=== PATIENT | female | born 1950 | race Caucasian/White ===

== ENCOUNTER 2017-02-14 16:05 | Observation (INO) ==
--- NOTE | 2017-02-14 16:44 | Emergency Department Note ---
Disposition Clinical Impression: Chest pain Qualifiers: Chest pain type: unspecified Qualified Code(s): R07.9 - Chest pain, unspecified Disposition: Admitted As Inpatient Condition: Undetermined Referrals: Gurjit Leon DO [Primary Care Provider] - Forms: ED Satisfaction Letter Time of Disposition: 19:17 Chest Pain HPI - General Chief Complaint: ED Chest Pain Stated Complaint: "I need admitted for heart cath" Time Seen by Provider: 02/14/17 16:20 Source: patient Mode of arrival: ambulatory Limitations: no limitations Vital Signs Reviewed: Yes Nursing Notes Reviewed: Yes - History of Present Illness HPI Narrative: 67-year-old female with history of hypertension, arrives to [facility] emergency department with concern chest pain has been ongoing over the past few weeks. The patient was recently admitted to the hospital where she had an EKG ischemic changes on the lateral leads noted on stress echo. Nuclear echo demonstrated no changes. Apparently this was a poor study. The patient was sent home. She states last night she had an acute change or worsening or she was having worsening chest pain that radiated to her neck and face as well as left upper extremity. The patient has no nitroglycerin at home. She denies taking anything today. Apparently the patient called her software engineer mobile nurse which struck her to come to the emergency department to be admitted for cardiac catheter. We will perform basic labs here in the emergency department including troponin, BNP, CBC. The patient will receive chest x-ray, EKG. We will likely admit the patient to the hospitalists after speaking to the software engineer mobile. Pt complaint: chest pain Onset (ago): week(s) (2-3) Duration: constant Onset: during rest, during exertion Pain Location: substernal Severity: moderate Severity scale (1-10): 4 Quality: tightness, heaviness Pain Radiation: LUE Improves with: nothing Worsens with: nothing Treatments prior to arrival chest pain: none - Related Data On Oral Contraceptives: No Home Medications Medication Instructions Recorded Confirmed Atenolol [Tenormin] 50 mg PO BID 11/26/15 02/14/17 Atorvastatin Calcium [Lipitor] 20 mg PO HS 11/26/15 02/14/17 Calcium Carbonate [Calcium] 500 mg PO BID 11/26/15 02/14/17 Levothyroxine [Synthroid] 75 mcg PO 0630 11/26/15 02/14/17 [place]-3/Dha/Epa/Fish Oil [Fish Oil 2,000 mg PO BID 11/26/15 02/14/17 1,000 mg Softgel] Omeprazole [PriLOSEC] 20 mg PO DAILY 11/26/15 02/14/17 Aspirin Enteric Coated [Aspirin EC] 81 mg PO DAILY 02/14/17 02/14/17 Potassium Chloride [Klor-Con 10 meq PO DAILY 02/14/17 02/14/17 Sprinkle] Allergies Allergy/AdvReac Type Severity Reaction Status Date / Time codeine Allergy Drowsy Verified 02/14/17 16:16 ketorolac [From Toradol] Allergy Vomiting Verified 02/14/17 16:16 lansoprazole [From Prevacid] Allergy Nausea Verified 02/14/17 16:16 morphine Allergy Nausea Verified 02/14/17 16:16 propoxyphene [From Darvon] Allergy See Verified 02/14/17 16:16 Comments All systems ED: reviewed and negative except as stated. Constitutional: Denies: fever, chills, weakness Cardiovascular: Reports: chest pain, dyspnea on exertion. 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 - Social History Smoking Status: Never smoker Alcohol use: Reports: none Drug use: Reports: none Physical Exam - General Limitations: no limitations General appearance: alert, in no apparent distress - Head Head exam: atraumatic, normocephalic, normal inspection - Eye Eye exam: Present: normal appearance, PERRL, EOMI - ENT ENT exam: normal exam, normal oropharynx, mucous membranes moist - Neck Neck exam: Present: normal inspection, full ROM, trachea midline - Chest Chest inspection: Present: normal inspection, symmetric chest wall rise - Respiratory Respiratory exam: Present: normal lung sounds bilaterally - Cardiovascular Cardiovascular exam: Present: normal rhythm, bradycardia, normal heart sounds - Abdominal Exam Abdominal exam: Present: soft Course - Consultations Consultation #1: Spoke with in cardiology that no further recommendations. They will agree to see the patient in the hospital. Time: 18:41 Vital Signs Temperature 98.4 F 02/14/17 16:10 Pulse Rate 57 02/14/17 16:10 Respiratory Rate 16 02/14/17 16:10 Blood Pressure 191/80 02/14/17 16:10 O2 Sat by Pulse Oximetry 97 02/14/17 16:10 Temperature 98.1 F 02/14/17 16:38 Pulse Rate 54 02/14/17 18:46 Respiratory Rate 16 02/14/17 18:46 Blood Pressure 149/81 02/14/17 18:46 O2 Sat by Pulse Oximetry 98 02/14/17 18:46 Oxygen Delivery Oxygen Delivery Room Air Chest Pain - MDM Narrative Medical decision making narrative: Patient's workup here in the emergency department demonstrated no acute process. We spoke with cardiology and no further recommendations but agrees to see the patient hospital. Given the patient's previous lateral ischemia and pending cardiac catheter I am concerned about the patient's chest pain that she had last night and felt like the previous chest pain which she was getting a stress test. We will admit the patient to the hospitalist, accepted by Dr. Phan. He did request Lovenox injection. We performed. - Medical Records Medical records reviewed: Yes I reviewed the patient's medical records. - Lab Data Lab results reviewed: Yes I reviewed the patient's lab results. Result diagrams: 02/14/17 17:08 02/14/17 17:08 Lab Results 02/14/17 02/14/17 02/14/17 Range/Units 17:08 17:08 17:08 WBC 7.7 (4.3-11.1) K/mcL RBC 4.03 (3.82-4.97) M/mcL Hgb 12.1 (11.5-15.4) g/dL Hct 36.3 (35.3-44.9) % MCV 90.1 (83.0-100.0) fL MCH 30.0 (28.0-33.3) pg MCHC 33.3 (31.6-35.5) g/dL RDW 13.7 (11.5-14.5) % Plt Count 339 (140-400) K/mcL MPV 9.1 L (9.4-12.4) fL Immature Gran % 0.3 (0-4) % Seg Neutrophils % 52.3 % Lymphocytes % 40.1 % Monocytes % 4.9 % Eosinophils % 1.6 % Basophils % 0.8 % Neutrophils # 4.1 (1.6-8.9) K/mcL Lymphocytes # 3.1 (0.6-4.6) K/mcL Monocytes # 0.4 (0.0-1.3) K/mcL Eosinophils # 0.1 (0.0-0.6) K/mcL Basophils # 0.1 (0.0-0.2) K/mcL PT 11.0 (9.4-12.1) Seconds INR 1.0 APTT 29.5 (26.0-36.0) Seconds Sodium 144 (136-145) mEq/L Potassium 3.6 (3.5-4.5) mEq/L Chloride 109 (98-109) mEq/L Carbon Dioxide 25 (19-29) mEq/L BUN 12 (7-20) mg/dL Creatinine 0.76 (0.57-1.11) mg/dL Est GFR ( Amer) > 60 (> 60) Est GFR (Non-Af Amer) > 60 (> 60) BUN/Creatinine Ratio 16 (6-26) Glucose 82 (70-99) mg/dL Calculated Osmolality 297 (280-300) Calcium 9.3 (8.6-10.8) mg/dL Troponin I (0-0.03) ng/mL 02/14/17 Range/Units 17:08 WBC (4.3-11.1) K/mcL RBC (3.82-4.97) M/mcL Hgb (11.5-15.4) g/dL Hct (35.3-44.9) % MCV (83.0-100.0) fL MCH (28.0-33.3) pg MCHC (31.6-35.5) g/dL RDW (11.5-14.5) % Plt Count (140-400) K/mcL MPV (9.4-12.4) fL Immature Gran % (0-4) % Seg Neutrophils % % Lymphocytes % % Monocytes % % Eosinophils % % Basophils % % Neutrophils # (1.6-8.9) K/mcL Lymphocytes # (0.6-4.6) K/mcL Monocytes # (0.0-1.3) K/mcL Eosinophils # (0.0-0.6) K/mcL Basophils # (0.0-0.2) K/mcL PT (9.4-12.1) Seconds INR APTT (26.0-36.0) Seconds Sodium (136-145) mEq/L Potassium (3.5-4.5) mEq/L Chloride (98-109) mEq/L Carbon Dioxide (19-29) mEq/L BUN (7-20) mg/dL Creatinine (0.57-1.11) mg/dL Est GFR ( Amer) (> 60) Est GFR (Non-Af Amer) (> 60) BUN/Creatinine Ratio (6-26) Glucose (70-99) mg/dL Calculated Osmolality (280-300) Calcium (8.6-10.8) mg/dL Troponin I 0.00 (0-0.03) ng/mL - Radiology Data Radiology results reviewed: Yes I reviewed the patient's radiology results. - EKG Data EKG attestation: Yes I reviewed and interpreted this EKG. EKG results narrative: Heart rate 50 bpm. ND interval 152 ms. QTc 453 ms. Sinus bradycardia. No ST elevation or ST depression noted. Nonspecific changes noted from EKG from 02/10. EKG #2: Heart rate 54 bpm. ND interval 161 ms. QTC 43 ms. Normal axis. Sinus bradycardia. No ST elevation or ST depression noted.
[2017-02-14 17:42] LABS: Basophils # 0.1 K/mcL (0.0-0.2); Basophils % 0.8 %; Eosinophils # 0.1 K/mcL (0.0-0.6); Eosinophils % 1.6 %; Hematocrit 36.3 % (35.3-44.9); Hemoglobin 12.1 g/dL (11.5-15.4); Immature Granulocytes % 0.3 % (0-4); Lymphocytes # 3.1 K/mcL (0.6-4.6); Lymphocytes % 40.1 %; Mean Corpuscular HGB Conc 33.3 g/dL (31.6-35.5); Mean Corpuscular Volume 90.1 fL (83.0-100.0); Mean Platelet Volume 9.1 fL (9.4-12.4); Monocytes # 0.4 K/mcL (0.0-1.3); Monocytes % 4.9 %; Neutrophils # 4.1 K/mcL (1.6-8.9); Platelet Count 339 K/mcL (140-400); Red Blood Count 4.03 M/mcL (3.82-4.97); Red Cell Distribution Width 13.7 % (11.5-14.5); Segmented Neutrophils % 52.3 %
[2017-02-14 17:52] LABS: Activated Partial Thrombo Time 29.5 Seconds (26.0-36.0)
[2017-02-14 17:55] LABS: BUN/Creatinine Ratio 16 (6-26); Blood Urea Nitrogen 12 mg/dL (7-20); Calcium 9.3 mg/dL (8.6-10.8); Carbon Dioxide 25 mEq/L (19-29); Chloride 109 mEq/L (98-109); Glucose 82 mg/dL (70-99); Osmolality,Calculated 297 (280-300); Potassium 3.6 mEq/L (3.5-4.5); Sodium 144 mEq/L (136-145); eGFR For African Americans > 60 (> 60); eGFR For Non-African Americans > 60 (> 60)
--- NOTE | 2017-02-14 18:06 | Emergency Department Note ---
START Narrative - START START: I examined this patient and my medical decision-making was reviewed with the Resident Physician. I agree with the documented findings, disposition and treatment plan as described except to the extent set forth below. 67 yo F here for chest pain. Stress nuclear test done. stress portion showed lateral ischemia but nuclear was negative. pt f/u with cards who wanted to arrange for a heart cath due to her ongoing sx of chest pain. she was uanble to stay in hospital over weekend. back in ER today with same complaint pt needs admitted for cardiac cath.
[2017-02-14] MEDS ORDERED: *HR* Enoxaparin 60 MG/0.6 ML SYRINGE SQ STA ×2 (19:13→20:06)
[2017-02-14] MEDS ORDERED: Naloxone 0.4 MG/ML INJ IVP PRN (20:58)
[2017-02-14] MEDS ORDERED: Ondansetron 4 MG/2 ML VIAL IVP PRN (20:58)
--- NOTE | 2017-02-14 21:56 | Event Note ---
Date of Encounter: 02/14/17 Time of Encounter: 21:53 Patients and examined withpractitioner. Patient has recent positive exercise stress test with ST segment depression and info lateral leads. She was scheduled to have a coronary and dendrogram. He has been having left arm pain. Patients received one DOSE full dose Lovenox. She has been having numbness on the left side of the face so to get a head CT scan. Cardiology evaluation. Keep NPO for possible cath in am
--- NOTE | 2017-02-14 21:56 | Internal Med History&Physical ---
Date of Encounter: 02/14/17 Time of Encounter: 19:00 Assessment and Plan (1) Chest pain Current visit: Yes Status: Acute Patient reports acute burning sensation in central chest that began last night, accompanied w/headache. Patient had recent exercise nuclear stress test on 02/02 which showed perfusion imaging was negative for ischemia or infarct. Exercise ECG was positive for ischemia-inferolateral. Gated EF > 70%. EKG today shows sinus bradycardia with nonspecific ST and T-wave abnormality and prolonged QT interval. Initial troponin 0.00. Trend x2. Continuous cardiac telemetry. Cardiology consult ordered. Monitor pt. closely for signs of increasing cardiac and/or respiratory distress. NPO @ midnight for possible heart cath in a.m. Qualifiers: Chest pain type: other chest pain Qualified Code(s): R07.89 - Other chest pain; R07.8 - Other chest pain (2) Numbness and tingling of left side of face Current visit: Yes Status: Acute Patient reports tingling/numbness/strange sensation to forehead and left side of face to chin which began last night. Denies previous hx. Reports headache last night. Denies N/V/vision changes/weakness bilaterally or unilaterally/ speech changes. Concern is for possible CVA/TIA activity. CT of head/brain w/o contrast ordered and shows no acute intracranial abnormality. Neuro checks Q2HR. (3) Arm pain, left Current visit: Yes Status: Acute Acute burning sensation in left arm the patient reports began last Sunday. CT of head/brain w/o contrast ordered to r/o possible infarct. CT scan shows no acute intracranial abnormality. Initial troponin 0.00. Trend 2. Continuous cardiac telemetry. Falls/safety precautions. Cardiology consult ordered. (4) GERD (gastroesophageal reflux disease) Current visit: Yes Status: Chronic Hx of chronic GERD. IVP Zofran every 6 when necessary for nausea. IVP Protonix 40 mg BID. Qualifiers: Esophagitis presence: without esophagitis Qualified Code(s): K21.9 - Gastro -esophageal reflux disease without esophagitis (5) HTN (hypertension) Current visit: Yes Status: Chronic Hx of chronic HTN. Monitor patient and VS and continue patient's atenolol. Qualifiers: Hypertension type: essential hypertension Qualified Code(s): I10 - Essential (primary) hypertension (6) HLD (hyperlipidemia) Current visit: Yes Status: Chronic Hx of chronic HLD. Lipid panel ordered in a.m. labs. Continue patient's Lipitor. Qualifiers: Hyperlipidemia type: pure hypercholesterolemia Qualified Code(s): E78.00 - Pure hypercholesterolemia, unspecified; E78.0 - Pure hypercholesterolemia (7) Hypothyroidism Current visit: Yes Status: Chronic Hx chronic hypothyroidism. Continue patient's Synthroid. Qualifiers: Hypothyroidism type: unspecified Qualified Code(s): E03.9 - Hypothyroidism , unspecified (8) DVT prophylaxis Current visit: Yes Status: Acute Patient received SQ Lovenox in ED for prophylaxis. Will hold tomorrow pending possible heart catheterization and await cardiology recommendations. Internal Medicine - H&P: HPI Chief complaint: Chest discomfort with buring in right arm and strange feeling on left face Admitted From: Emergency Dept Plans for Post Hospital Care: Home History of present illness: Ms. Umaña is a 67 year old female with medical history of GERD, hypertension, hyperlipidemia, heart murmur, thyroid disease presents to ED with chief complaint of burning in her left arm since Sunday and tingling in her left face and chest which began last night and was accompanied by headache. Patient had recent exercise nuclear stress test on 02/02/17 which showed perfusion imaging was negative for ischemia or infarct. Exercise ECG was positive for ischemia- inferolateral. Gated EF > 70%. EKG today shows sinus bradycardia with nonspecific ST and T-wave abnormality and prolonged QT interval. Patient reports chest burning, left arm burning, and strange sensation to left forehead and face but denies recent illness, nausea, vomiting, fever, chills, weakness, abdominal pain, changes in vision, cough, lightheadedness, dizziness, confusion , unusual bleeding, presyncope, or syncope. Past Med Surg Social Fam HX - Past Medical History Source: patient, old records reviewed, obtained from family Medical history: GERD, hypertension, thyroid disease, other (Heart murmur) Psychiatric history: no psych history - Past Surgical History Surgical History: hysterectomy (Total), other (Tonsillectomy, removal of ganglion cyst of right hand ) - Social History Smoking Status: Never smoker Smokeless Tobacco Status: No Alcohol use: none Drug use: none Current living situation: Home, With Family Activity Level: Independent ambulation Recent Out of Country Travel Within the Last 8 Weeks: No Exposure or Possible Exposure to Illness During Travel: No - Family History Father Race: Family Member Ethnicity: Non- Living Status: Age at : 79 Cause of : Heart valve rupture Hx Family Cardiac Disorders: Yes (HTN) Hx Family GI Disorders: Yes (CKD) Mother Race: Family Member Ethnicity: Non- Living Status: Still Living Hx Family Cardiac Disorders: Yes (Leaky heart valve) Brother Race: Family Member Ethnicity: Non- Living Status: Still Living Hx Family Cardiac Disorders: Yes (PR, CHF, HTN, HLD) Sister Race: Family Member Ethnicity: Non- Living Status: Still Living Hx Family Cardiac Disorders: Yes (Mitral valve regurgitation) Internal Medicine - H&P: Meds Atenolol [Tenormin] 50 mg PO BID 11/26/15 [History] Atorvastatin Calcium [Lipitor] 20 mg PO HS 11/26/15 [History] Calcium Carbonate [Calcium] 500 mg PO BID 11/26/15 [History] Levothyroxine [Synthroid] 75 mcg PO 0630 11/26/15 [History] [place]-3/Dha/Epa/Fish Oil [Fish Oil 1,000 mg Softgel] 2,000 mg PO BID 11/26/15 [ History] Omeprazole [PriLOSEC] 20 mg PO DAILY 11/26/15 [History] Aspirin Enteric Coated [Aspirin EC] 81 mg PO DAILY 02/14/17 [History] Potassium Chloride [Klor-Con Sprinkle] 10 meq PO DAILY 02/14/17 [History] 3 Allergy/AdvReac Type Severity Reaction Status Date / Time codeine Allergy Drowsy Verified 02/14/17 16:16 ketorolac [From Toradol] Allergy Vomiting Verified 02/14/17 16:16 lansoprazole [From Prevacid] Allergy Nausea Verified 02/14/17 16:16 morphine Allergy Nausea Verified 02/14/17 16:16 propoxyphene [From Darvon] Allergy See Verified 02/14/17 16:16 Comments All Systems PM: A 10-system review of systems was performed and is negative for pertinent findings except as documented above in the HPI. - Constitutional Constitutional: no chills, no fever(s), no night sweats - EENT Eyes: no change in vision, no discharge, no pain, no photophobia Ears: no ear discharge, no ear pain, no tinnitus Nose, mouth and throat: no dysphagia, no nasal discharge, no neck pain, no sore throat - Breasts Breasts: as per HPI - Cardiovascular Cardiovascular ROS IM: as per HPI, chest pain, dyspnea, dyspnea on exertion, no diaphoresis, no lightheadedness, no palpitations, no syncope - Respiratory Respiratory: as per HPI, dyspnea on exertion - Gastrointestinal Gastrointestinal: no abdominal pain, no diarrhea, no hematemesis, no hematochezia, no melena, no nausea, no vomiting - Genitourinary Genitourinary: no change in urinary stream, no dysuria, no flank pain, no hematuria Menstruation: as per HPI, post hysterectomy - Musculoskeletal Musculoskeletal ROS IM: numbness, tingling (Chest, left arm) - Integumentary Integumentary IM: no rash, no unusual bruising - Neurological Neurological ROS: as per HPI, numbness, tingling, no confusion, no convulsions, no focal weakness, no tremor(s) - Psychiatric Psychiatric: as per HPI - Endocrine Endocrine IM: as per HPI - Hematologic/Lymphatic Hematologic/Lymphatic: no easy bruising - Allergic/Immunologic Allergic/Immunologic: as per HPI - Constitutional Vitals: Temp Pulse Resp BP Pulse Ox 98.0 F 57 16 151/87 95 02/14/17 21:03 02/14/17 21:03 02/14/17 21:03 02/14/17 21:03 02/14/17 21:03 General appearance: Present: cooperative, A&O X 3, pleasant, no acute distress, answers questions appropriately - Head Head exam: Present: atraumatic, normocephalic - Eye Eye exam: Present: PERRL, conjuntiva pink, sclera anicteric Pupils: Present: PERRL - ENT ENT exam: Present: normal exam, normal external ear exam - Neck Neck exam general surgery: Present: normal inspection, supple, trachea midline. Absent: lymphadenopathy - Respiratory Respiratory exam: Present: CTAB. Absent: accessory muscle use, rales, rhonchi, wheezes - Cardiovascular Cardiovascular exam: Present: bradycardia, RRR, +S1, +S2. Absent: diastolic murmur, gallop, rubs, systolic murmur - GI/Abdominal GI/Abdominal exam: Present: normal bowel sounds, soft, no peritoneal signs. Absent: distended, tenderness - Rectal Rectal exam: Present: deferred - Additional comments: exam deferred. - Extremities Exam Extremities exam: Present: warm, radial pulses palpable and symmetrical. Absent : calf tenderness, cyanotic, pedal edema - Back Exam Back exam: Present: normal inspection - Neurological Exam Neurological exam: Present: CN II-XII intact, oriented X3, no focal deficits. Absent: pronater drift, facial droop, speech deficit - Psychiatric Psychiatric exam: Present: normal affect, normal mood - Skin Skin exam: Present: dry, intact Internal Med - H&P Results - Labs CBC & Chem 7: 02/14/17 17:08 02/14/17 17:08 - EKG Data EKG shows normal: sinus rhythm Rate: bradycardia - EKG Data EKG comments: 02/14/17 22:03 EKG dated 02/10/17 shows sinus bradycardia with left ventricular hypertrophy and ST-T changes. EKG dated 02/14/17 16:30:11 shows sinus bradycardia with moderate ST depression. EKG dated 02/14/17 19:28:46 shows sinus bradycardia with nonspecific ST and T- wave abnormality, prolonged QT interval. - Diagnostic Studies Chest x-ray Additional comments: Impressions Chest X-Ray 02/14/17 16:38 IMPRESSION: No acute cardiopulmonary disease. D/ / Nabil Wang MD / Nabil Wang MD Interpreting Provider: Nabil Wang MD CT scan - head Additional comments: Impressions Head CT 02/14/17 21:06 IMPRESSION: No acute intracranial abnormality. D/ / Phillip Ballesteros MD / Phillip Ballesteros MD Interpreting Provider: Phillip Ballesteros MD
[2017-02-15] MEDS: Pantoprazole 40 MG VIAL IVP SCH ×3 (00:03→21:12)
[2017-02-15] MEDS: Acetaminophen 325 MG TABLET PO PRN ×2 (00:33→20:05)
[2017-02-15 06:11] LABS: Basophils # 0.1 K/mcL (0.0-0.2); Basophils % 0.9 %; Eosinophils # 0.2 K/mcL (0.0-0.6); Eosinophils % 3.6 %; Hematocrit 33.9 % (35.3-44.9); Hemoglobin 11.1 g/dL (11.5-15.4); Immature Granulocytes % 0.3 % (0-4); Lymphocytes # 3.3 K/mcL (0.6-4.6); Mean Corpuscular HGB Conc 32.7 g/dL (31.6-35.5); Mean Corpuscular Hemoglobin 30.1 pg (28.0-33.3); Mean Corpuscular Volume 91.9 fL (83.0-100.0); Mean Platelet Volume 9.2 fL (9.4-12.4); Monocytes # 0.4 K/mcL (0.0-1.3); Monocytes % 6.4 %; Neutrophils # 2.6 K/mcL (1.6-8.9); Platelet Count 315 K/mcL (140-400); Red Blood Count 3.69 M/mcL (3.82-4.97); Red Cell Distribution Width 13.4 % (11.5-14.5); Segmented Neutrophils % 38.8 %
[2017-02-15 06:13] LABS: INR 1.1; Prothrombin Time 11.9 Seconds (9.4-12.1)
[2017-02-15 06:15] LABS: Activated Partial Thrombo Time 37.9 Seconds (26.0-36.0)
[2017-02-15 06:17] LABS: Hemoglobin A1C 5.7 %
[2017-02-15 06:35] LABS: Alanine Aminotransferase 17 Units/L (0-55); Albumin 3.3 g/dL (3.5-5.0); Albumin/Globulin Ratio 1.1 (1.1-2.2); Alkaline Phosphatase 81 Units/L (38-126); Aspartate Amino Transferase 16 Units/L (5-34); BUN/Creatinine Ratio 16 (6-26); Bilirubin,Total 0.8 mg/dL (0.2-1.2); Blood Urea Nitrogen 12 mg/dL (7-20); Calcium 8.9 mg/dL (8.6-10.8); Carbon Dioxide 25 mEq/L (19-29); Chloride 110 mEq/L (98-109); Chol/HDL Ratio 4.6 (0-4.9); Cholesterol 170 mg/dL (< 200); Globulin 3.1 g/dL (2.4-3.5); Glucose 89 mg/dL (70-99); HDL Cholesterol 37 mg/dL (40-59); LDL Cholesterol,Calculated 103 mg/dL (0-99); Magnesium 1.9 mg/dL (1.6-2.6); Osmolality,Calculated 295 (280-300); Potassium 3.4 mEq/L (3.5-4.5); Sodium 143 mEq/L (136-145); Total Protein 6.4 g/dL (6.0-8.3); Triglycerides 152 mg/dL (< 150); eGFR For African Americans > 60 (> 60); eGFR For Non-African Americans > 60 (> 60)
--- NOTE | 2017-02-15 10:54 | Cardiology Consult Note ---
<Estuardo Cruz - Last Filed: 02/15/17 11:28> Date of Encounter: 02/15/17 Time of Encounter: 10:43 Assessment and Plan (1) ST segment depression Current Visit: Yes Status: Acute Stress EKG 02/02/17 - ST depression in lateral leads I, aVL, V5-V6. Originally scheduled cath on 02/21/2017. When patient was seen, CP symptoms were resolved. Patient was recently hospitalized with similar symptoms. Trop neg x3. TSH 2.674. Pt is compliant with home meds ASA81, Atenolol 50 BID, and atorvastatin 20. - CALLI score 5; risks age, >3 CAD risks, known stenosis, angina - Patient will most likely go to micro lab analyst today. BP needs to be controlled prior to procedure. Started lisinopril 5 mg. Started on 2x 0.2 mg Nitroglycern TD (remove individual patch if BP bottoms out) (2) HTN (hypertension) Current Visit: Yes Status: Chronic Patient has chronic HTN. Patient does not take BP at home. Recommended to patient, to closely monitor her BP. - BP is currently unstable sys >190 and emma >95. On last two hospitalizations BP has ranged from 130-190/62-95. On chart review, patient's BP on last outpatient appointment was 138/78 - started lisinopril + 2x 0.2 nitro TD Qualifiers: Hypertension type: essential hypertension Qualified Code(s): I10 - Essential (primary) hypertension (3) HLD (hyperlipidemia) Current Visit: Yes Status: Chronic Current home atorvastatin 20. ASCVD risk 22.7%, per guidelines high intensity statin should be considered when patient is discharged. Qualifiers: Hyperlipidemia type: pure hypercholesterolemia Qualified Code(s): E78.00 - Pure hypercholesterolemia, unspecified; E78.0 - Pure hypercholesterolemia Discussion w patient/family: The assessment and plan as outlined above was discussed with the patient and/or family members who expressed understanding and agreement. All questions were answered. Thank you for involving us in the care of your patient. Please call with any questions. History of Present Illness Consult date: 02/15/17 Requesting physician: Tung Peña Consult reason: Chest pain Chief complaint: Chest pain History of present illness: Ms. Umaña is a 67 year old female who presented to the ED with Chest pain last night w/ hx of recent hospitalization of chest pain, abnormal exercise stress with ST depression in Lateral leads, HTN, HLD. Patient describes the pain as epigastrically located which has now migrated to left "underneath breast bone". Patient does admit to having associated fluttering in her chest, sweating, Left face numbness, and left arm "burning", and trouble catching her breath which worsens with exertion. Pain does not change with position, inhalation, and is non-tender. Patient denies waking up in the middle of the night to catch her breath, nausea, vomiting, trouble laying flat, or losing consciousness. Patient was originally scheduled to have cath on 02/21/17. EKG on admission found to have lateral ischemic changes, and negative trops x3. Head CT reported no acute intracranial abnormalities. BP have elevated since hospitalization, currently 192/95, and HR <60. Past Med Surg Social Fam HX - Past Medical History Medical history: GERD, hypertension, thyroid disease, other Psychiatric history: no psych history - Past Surgical History Surgical History: hysterectomy, other - Social History Smoking Status: Never smoker Smokeless Tobacco Status: No Alcohol use: none Drug use: none - Family History Father Race: Family Member Ethnicity: Non- Living Status: Age at : 79 Cause of : Heart valve rupture Hx Family Cardiac Disorders: Yes (HTN) Hx Family GI Disorders: Yes (CKD) Mother Race: Family Member Ethnicity: Non- Living Status: Still Living Hx Family Cardiac Disorders: Yes (Leaky heart valve) Brother Race: Family Member Ethnicity: Non- Living Status: Still Living Hx Family Cardiac Disorders: Yes (CT, CHF, HTN, HLD) Sister Race: Family Member Ethnicity: Non- Living Status: Still Living Hx Family Cardiac Disorders: Yes (Mitral valve regurgitation) Medications and Allergies Atenolol [Tenormin] 50 mg PO BID 11/26/15 [History] Atorvastatin Calcium [Lipitor] 20 mg PO HS 11/26/15 [History] Calcium Carbonate [Calcium] 500 mg PO BID 11/26/15 [History] Levothyroxine [Synthroid] 75 mcg PO 0630 11/26/15 [History] Garrett-3/Dha/Epa/Fish Oil [Fish Oil 1,000 mg Softgel] 2,000 mg PO BID 11/26/15 [ History] Omeprazole [PriLOSEC] 20 mg PO DAILY 11/26/15 [History] Aspirin Enteric Coated [Aspirin EC] 81 mg PO DAILY 02/14/17 [History] Potassium Chloride [Klor-Con Sprinkle] 10 meq PO DAILY 02/14/17 [History] 3 Allergy/AdvReac Type Severity Reaction Status Date / Time codeine Allergy Drowsy Verified 02/14/17 16:16 ketorolac [From Toradol] Allergy Vomiting Verified 02/14/17 16:16 lansoprazole [From Prevacid] Allergy Nausea Verified 02/14/17 16:16 morphine Allergy Nausea Verified 02/14/17 16:16 propoxyphene [From Darvon] Allergy See Verified 02/14/17 16:16 Comments All Systems Review: A 10-system review of systems was performed and is negative for pertinent findings except as documented above in the HPI. - Constitutional Constitutional: no fatigue, no fever(s), no headache(s), no lethargy, no night sweats, no stops breathing during sleep, no weakness - EENT Eyes: no blurred vision, no loss of vision - Cardiovascular Cardiovascular: as per HPI - Respiratory Respiratory: dyspnea, no cough, no hemoptysis, no wheezing - Gastrointestinal Gastrointestinal: no abdominal pain, no coffee ground emesis, no hematemesis, no hematochezia, no melena - Neurological Neurological: numbness (left arm and face), no abnormal speech, no dizziness, no focal weakness, no loss of vision, no memory loss - Psychiatric Psychiatric: no anxiety, no depression, no hallucinations, no panic attacks Physical Examination Vital Signs, Last 4 Hours Temp Pulse Resp BP Pulse Ox 02/15/17 07:13 97.8 F 51 16 143/68 94 General: Conversant, No Apparent Distress HEENT: Atraumatic, Normocephaly Neck: No JVD, Normal carotid pulses Cardiac: Normal S1 and S2, No Murmur, Other (Rate tachycardic) Lungs: Normal Breath Sounds, No Wheeze, Rales, Rhonchi Neuro: Alert and responsive, No focal deficits noted Abdomen: Soft, Non-Tender Skin: No rashes noted on visualized skin Musculoskeletal: No Chest Wall Tenderness Extremities: No Clubbing, No Cyanosis, No Edema, Normal Pulses Results 02/15/17 05:30 02/15/17 05:30 Lab Results 02/14/17 02/15/17 02/15/17 22:16 05:30 05:30 WBC 6.7 Hgb 11.1 L Hct 33.9 L Plt Count 315 INR 1.1 APTT 37.9 H Sodium Potassium Chloride Carbon Dioxide BUN Creatinine Glucose Calcium Magnesium Total Bilirubin AST ALT Alkaline Phosphatase Troponin I 0.00 02/15/17 02/15/17 05:30 05:30 WBC Hgb Hct Plt Count INR APTT Sodium 143 Potassium 3.4 L Chloride 110 H Carbon Dioxide 25 BUN 12 Creatinine 0.75 Glucose 89 Calcium 8.9 Magnesium 1.9 Total Bilirubin 0.8 AST 16 ALT 17 Alkaline Phosphatase 81 Troponin I 0.00 Consult Discharge Plan - Plan Referrals: Gurjit Leon DO [Primary Care Provider] - 02/21/17 9:30 am Miah Hernandez [Partnered Physician] - 03/06/17 8:00 am <Miah Hernandez - Last Filed: 02/15/17 13:27> Date of Encounter: 02/15/17 - Attending Attestation I examined this patient and my medical decision-making was reviewed with the Resident Physician. I agree with the documented findings, disposition and treatment plan as described except to the extent set forth below. 67-year-old female well-known to me originally scheduled for an outpatient left heart catheter presents to the prescription with atypical type chest pain lateral ST changes currently asymptomatic resting comfortably. Negative cardiac markers and known preserved ejection fraction. Titration of medications for better control of her blood pressure and left heart catheter will be obtained through this admission. Assessment and Plan Discussion w patient/family: The assessment and plan as outlined above was discussed with the patient and/or family members who expressed understanding and agreement. All questions were answered. Thank you for involving us in the care of your patient. Please call with any questions. History of Present Illness History of present illness: Ms. Umaña is a 67 year old female All Systems Review: A 10-system review of systems was performed and is negative for pertinent findings except as documented above in the HPI. Physical Examination Vital Signs, Last 4 Hours Temp Pulse Resp BP Pulse Ox 02/15/17 13:17 147/75 02/15/17 12:04 61 136/72 02/15/17 10:48 97.8 F 50 16 192/95 97 Results 02/15/17 05:30 02/15/17 05:30 Lab Results 02/14/17 02/15/17 02/15/17 22:16 05:30 05:30 WBC 6.7 Hgb 11.1 L Hct 33.9 L Plt Count 315 INR 1.1 APTT 37.9 H Sodium Potassium Chloride Carbon Dioxide BUN Creatinine Glucose Calcium Magnesium Total Bilirubin AST ALT Alkaline Phosphatase Troponin I 0.00 02/15/17 02/15/17 05:30 05:30 WBC Hgb Hct Plt Count INR APTT Sodium 143 Potassium 3.4 L Chloride 110 H Carbon Dioxide 25 BUN 12 Creatinine 0.75 Glucose 89 Calcium 8.9 Magnesium 1.9 Total Bilirubin 0.8 AST 16 ALT 17 Alkaline Phosphatase 81 Troponin I 0.00
--- NOTE | 2017-02-15 11:21 | Electrocardiograph Report ---
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
[2017-02-15] MEDS: Aspirin Enteric Coated 81 MG Tablet PO SCH (12:07)
[2017-02-15] MEDS ORDERED: Nitroglycerin 0.2 MG PATCH.TD24 TD SCH ×2 (12:46)
[2017-02-15] MEDS ORDERED: 0.9 % Sodium Chloride 1,000 ML ONE (12:49)
[2017-02-15] MEDS ORDERED: *HR* Heparin 10,000 UNIT/10 ML VIAL ONE (12:49)
[2017-02-15] MEDS ORDERED: Heparin 1,000 UNITS/500 mL NS 500 ML ONE (12:49)
[2017-02-15] MEDS ORDERED: Nitroglycerin 1,000 MCG/10 ML VIAL IV ONE (12:50)
[2017-02-15] MEDS ORDERED: *HR* Midazolam HCl 2 MG/2 ML VIAL ONE ×2 (13:33→14:24)
--- NOTE | 2017-02-15 13:46 | Pre-Sedation Evaluation ---
Pre-sedation evaluation - Pre-sedation checklist Date of procedure: 02/15/17 Procedure: left heart cath possible Recent Vitals: Last Vital Signs Temp 97.8 F 02/15/17 10:48 Pulse 61 02/15/17 12:04 Resp 16 02/15/17 10:48 BP 147/75 02/15/17 13:17 Pulse Ox 97 02/15/17 10:48 H&P (including ROS) documented in medical record: Yes Previous reaction to sedatives/anesthetics: Yes; explain in comment Dietary Status: NPO after Midnight Airway Assessment: Patient can open mouth completely, TMJ function normal Possible difficult airway: No ASA Classification *see protocol: CLASS IV-Severe systemic disease/constant threat to pt's life Plan of Care: Pt appropriate candidate for procedure/moderate/conscious sedation , Risks/benefits of procedure/sedation discussed w/ patient/family, If not NPO; Risk of intake outweiged by necessity to perform procedure (Pt reports rash from morphine. )
--- NOTE | 2017-02-15 17:03 | Electrocardiograph Report ---
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
--- NOTE | 2017-02-15 19:33 | Internal Med Progress Note ---
Date of Encounter: 02/15/17 Time of Encounter: 18:40 - Assessment and plan (1) Chest pain Current Visit: Yes Status: Acute Assessment and plan: Patient reports acute burning sensation in central chest that began prior to admission. Accompanied by headache. Patient had recent stress test on which was negative for ischemia or infarct. Gated EF of greater than 70%. EKG on admission showed sinus bradycardia with nonspecific ST changes and prolonged QT interval. Troponins were negative. Cardiology was consulted and patient was taken to [facility]. LHC showed moderate atherosclerotic coronary artery disease, normal LV with an EF of 65%. Patient still reports some left chest pain after catheter today. We will continue to monitor overnight. Continue telemetry Treat chest pain as needed Continue aspirin, Lipitor, beta nieves. Qualifiers: Chest pain type: other chest pain Qualified Code(s): R07.89 - Other chest pain; R07.8 - Other chest pain (2) DVT prophylaxis Current Visit: Yes Status: Acute Assessment and plan: Patient is ambulatory, observation status. (3) GERD (gastroesophageal reflux disease) Current Visit: Yes Status: Chronic Assessment and plan: Chronic. Continue home medications. Patient denies symptoms at this time. Tenderness to palpation in epigastric area. Qualifiers: Esophagitis presence: without esophagitis Qualified Code(s): K21.9 - Gastro -esophageal reflux disease without esophagitis (4) HTN (hypertension) Current Visit: Yes Status: Chronic Assessment and plan: Chronic. Continue monitor vital signs. Continue home medications. Qualifiers: Hypertension type: essential hypertension Qualified Code(s): I10 - Essential (primary) hypertension - Time Spent With Patient less than 15 minutes - Subjective Interval history: Patient was seen and assessed 1840. She is status post [facility]. There is no intervention required. She still reports some intermittent left chest pain. She denies vomiting, shortness breath, nausea, headache, dizziness, blurred vision, abdominal pain. We will continue monitor overnight and discharge in the morning if she remains stable. - Constitutional Vitals: Temp Pulse Resp BP Pulse Ox 97.8 F 61 16 147/75 97 02/15/17 10:48 02/15/17 12:04 02/15/17 10:48 02/15/17 13:17 02/15/17 10:48 General appearance: Present: cooperative, A&O X 3, pleasant, no acute distress, answers questions appropriately - Head Head exam: Present: atraumatic, normal inspection, normocephalic - Eye Eye exam: Present: normal appearance, PERRL, conjuntiva pink, sclera anicteric Pupils: Present: PERRL - Neck Neck exam general surgery: Present: supple, trachea midline. Absent: lymphadenopathy, tenderness - Respiratory Respiratory exam: Present: CTAB. Absent: accessory muscle use, rales, rhonchi, wheezes - Cardiovascular Cardiovascular exam: Present: RRR, +S1, +S2. Absent: diastolic murmur, gallop, rubs, systolic murmur - GI/Abdominal GI/Abdominal exam: Present: normal bowel sounds, soft. Absent: distended, hepatomegaly, tenderness - Extremities Exam Extremities exam: Present: normal capillary refill, warm, radial pulses palpable and symmetrical. Absent: calf tenderness, cyanotic, pedal edema - Neurological Exam Neurological exam: Present: CN II-XII intact, oriented X3, no focal deficits. Absent: pronater drift, facial droop, speech deficit - Skin Skin exam: Present: dry, intact, normal color, warm. Absent: rash Internal Medicine: Result - Labs CBC & Chem 7: 02/15/17 05:30 02/15/17 05:30 Labs: Short CBC 02/15/17 Range/Units 05:30 WBC 6.7 (4.3-11.1) K/mcL Hgb 11.1 L (11.5-15.4) g/dL Hct 33.9 L (35.3-44.9) % Plt Count 315 (140-400) K/mcL Neutrophils # 2.6 (1.6-8.9) K/mcL BMP 02/15/17 05:30 Sodium 143 Potassium 3.4 L Chloride 110 H Carbon Dioxide 25 BUN 12 Creatinine 0.75 Glucose 89 Calcium 8.9 Cardiac Enzymes 02/14/17 02/15/17 Range/Units 22:16 05:30 Troponin I 0.00 0.00 (0-0.03) ng/mL Liver Function 02/15/17 Range/Units 05:30 Total Bilirubin 0.8 (0.2-1.2) mg/dL AST 16 (5-34) Units/L ALT 17 (0-55) Units/L Alkaline Phosphatase 81 (38-126) Units/L Albumin 3.3 L (3.5-5.0) g/dL - ABG Interpretation ABG results: PT/INR, D-dimer PT 11.9 Seconds (9.4-12.1) 02/15/17 05:30 - Impressions Impressions Head CT 02/14/17 21:06 IMPRESSION: No acute intracranial abnormality. D/ / Phillip Ballesteros MD / Phillip Ballesteros MD Interpreting Provider: Phillip Ballesteros MD Consult Discharge Plan - Plan Referrals: Gurjit Leon DO [Primary Care Provider] - 02/21/17 9:30 am Miah Hernandez [Partnered Physician] - 03/06/17 8:00 am
[2017-02-15] MEDS ORDERED: Adenosine 90 MG/30 ML MLS IV ONE (19:35)
[2017-02-16 06:05] LABS: Basophils % 0.5 %; Eosinophils # 0.2 K/mcL (0.0-0.6); Eosinophils % 2.2 %; Hematocrit 34.6 % (35.3-44.9); Hemoglobin 11.3 g/dL (11.5-15.4); Immature Granulocytes % 0.1 % (0-4); Lymphocytes # 3.3 K/mcL (0.6-4.6); Lymphocytes % 42.4 %; Mean Corpuscular HGB Conc 32.7 g/dL (31.6-35.5); Mean Corpuscular Hemoglobin 30.1 pg (28.0-33.3); Mean Platelet Volume 9.4 fL (9.4-12.4); Monocytes # 0.6 K/mcL (0.0-1.3); Monocytes % 8.2 %; Neutrophils # 3.6 K/mcL (1.6-8.9); Platelet Count 295 K/mcL (140-400); Red Blood Count 3.76 M/mcL (3.82-4.97); Red Cell Distribution Width 13.8 % (11.5-14.5); Segmented Neutrophils % 46.6 %
[2017-02-16 06:19] LABS: Alanine Aminotransferase 16 Units/L (0-55); Albumin 3.2 g/dL (3.5-5.0); Alkaline Phosphatase 77 Units/L (38-126); Aspartate Amino Transferase 16 Units/L (5-34); BUN/Creatinine Ratio 18 (6-26); Bilirubin,Total 0.8 mg/dL (0.2-1.2); Blood Urea Nitrogen 15 mg/dL (7-20); Carbon Dioxide 24 mEq/L (19-29); Chloride 108 mEq/L (98-109); Globulin 3.1 g/dL (2.4-3.5); Glucose 92 mg/dL (70-99); Osmolality,Calculated 290 (280-300); Potassium 3.3 mEq/L (3.5-4.5); Sodium 140 mEq/L (136-145); Total Protein 6.3 g/dL (6.0-8.3); eGFR For African Americans > 60 (> 60); eGFR For Non-African Americans > 60 (> 60)
[2017-02-16] MEDS ORDERED: Nitroglycerin 0.2 MG PATCH.TD24 TD SCH ×2 (07:30)
[2017-02-16] MEDS: Pantoprazole 40 MG VIAL IVP SCH (10:07)
[2017-02-16] MEDS: Aspirin Enteric Coated 81 MG Tablet PO SCH (10:08)
--- NOTE | 2017-02-16 10:47 | Cardiology Progress Note ---
<Estuardo Cruz - Last Filed: 02/16/17 10:40> Date of Encounter: 02/16/17 Time of Encounter: 10:40 Assessment and Plan (1) ST segment depression Current Visit: Yes Status: Acute Stress EKG 02/02/17 - ST depression in lateral leads I, aVL, V5-V6. Originally scheduled cath on 02/21/2017. When patient was seen, CP symptoms were resolved. Patient was recently hospitalized with similar symptoms. Trop neg x3. TSH 2.674. Pt is compliant with home meds ASA81, Atenolol 50 BID, and atorvastatin 20. CALLI score 5; risks age, >3 CAD risks, known stenosis, angina - Cath yesterday FFR 0.86 and 0.88, with EF 65% - patient to be seen in cards outpatient 3-4 months - Patient given prescription for ACEI, and Atorvastatin 40. Educated to continue taking Atenolol, and ASA81 - cardiology to sign off at this time (2) HTN (hypertension) Current Visit: Yes Status: Chronic Patient has chronic HTN. Patient does not take BP at home. Recommended to patient, to closely monitor her BP. Qualifiers: Hypertension type: essential hypertension Qualified Code(s): I10 - Essential (primary) hypertension (3) HLD (hyperlipidemia) Current Visit: Yes Status: Chronic ASCVD risk 22.7%, per guidelines high intensity statin. Patient Atorvastatin increased to 40 mg Qualifiers: Hyperlipidemia type: pure hypercholesterolemia Qualified Code(s): E78.00 - Pure hypercholesterolemia, unspecified; E78.0 - Pure hypercholesterolemia Discussion w patient/family: The assessment and plan as outlined above was discussed with the patient and/or family members who expressed understanding and agreement. All questions were answered. Thank you for involving us in the care of your patient. Please call with any questions. Subjective Principal diagnosis: chest pain Interval history: Patient received cath yesterday without intervention. Patient has since reported her symptoms have subsided, denies chest pain, arm and face numbness/ tingling. She states that her symptoms were most likely due to anxiety, since her from heart complications. Objective Vital Signs, Last 4 Hours Temp Pulse Resp BP Pulse Ox 02/16/17 07:52 98.1 F 56 20 132/69 96 General: Conversant, No Apparent Distress HEENT: Atraumatic, Normocephaly, Mucus Membranes Moist Neck: No JVD, Normal carotid pulses Cardiac: Reg Rate and Rhythm, Normal S1 and S2, No Murmur Lungs: Normal Breath Sounds, No Wheeze, Rales, Rhonchi Neuro: Alert and responsive, No focal deficits noted Abdomen: Soft, Non-Tender Skin: No rashes noted on visualized skin Musculoskeletal: No Chest Wall Tenderness Extremities: No Clubbing, No Cyanosis, No Edema, Normal Pulses Results 02/16/17 04:34 02/16/17 04:34 Lab Results 02/16/17 02/16/17 04:34 04:34 WBC 7.7 Hgb 11.3 L Hct 34.6 L Plt Count 295 Sodium 140 Potassium 3.3 L Chloride 108 Carbon Dioxide 24 BUN 15 Creatinine 0.84 Glucose 92 Calcium 9.0 Total Bilirubin 0.8 AST 16 ALT 16 Alkaline Phosphatase 77 Consult Discharge Plan - Plan Referrals: Gurjit Leon DO [Primary Care Provider] - 02/21/17 9:30 am Miah Hernandez [Partnered Physician] - 03/06/17 8:00 am Prescriptions: Atorvastatin [Lipitor] 40 mg PO HS #30 tablet Lisinopril [Zestril] 10 mg PO DAILY #30 tablet <Miah Hernandez - Last Filed: 02/16/17 12:14> Date of Encounter: 02/16/17 Assessment and Plan Discussion w patient/family: The assessment and plan as outlined above was discussed with the patient and/or family members who expressed understanding and agreement. All questions were answered. Thank you for involving us in the care of your patient. Please call with any questions. I examined this patient and my medical decision-making was reviewed with the Resident Physician. I agree with the documented findings, disposition and treatment plan as described except to the extent set forth below. 67 YO with chest pain FFR of the mid RCA non significant lowest gradient .86. Continue medical therapy and f/u as an OP in 3-4 months Objective Vital Signs, Last 4 Hours Temp Pulse Resp BP Pulse Ox 02/16/17 11:25 98.3 F 66 15 122/67 95 Results 02/16/17 04:34 02/16/17 04:34 Lab Results 02/16/17 02/16/17 04:34 04:34 WBC 7.7 Hgb 11.3 L Hct 34.6 L Plt Count 295 Sodium 140 Potassium 3.3 L Chloride 108 Carbon Dioxide 24 BUN 15 Creatinine 0.84 Glucose 92 Calcium 9.0 Total Bilirubin 0.8 AST 16 ALT 16 Alkaline Phosphatase 77
[2017-02-16 11:26] VITALS: BP 122/67
--- NOTE | 2017-02-16 15:43 | Discharge Summary ---
Date of Encounter: 02/16/17 Time of Encounter: 15:30 - Discharge Diagnosis (1) Chest pain Priority: Primary Status: Acute Comments: Patient reports acute burning sensation in central chest that began prior to admission. Accompanied by headache. Patient had recent stress test on which was negative for ischemia or infarct. Gated EF of greater than 70%. EKG on admission showed sinus bradycardia with nonspecific ST changes and prolonged QT interval. Troponins were negative. Cardiology was consulted and patient was taken to [facility]. LHC showed moderate atherosclerotic coronary artery disease, normal LV with an EF of 65%. Patient still reported some left chest pain after catheter, denies today. Continue aspirin, Lipitor, beta nieves. Per Cardiology Note: Stress EKG 02/02/17 - ST depression in lateral leads I, aVL, V5-V6. Originally scheduled cath on 02/21/2017. When patient was seen, CP symptoms were resolved. Patient was recently hospitalized with similar symptoms. Trop neg x3. TSH 2.674. Pt is compliant with home meds ASA81, Atenolol 50 BID, and atorvastatin 20. CALLI score 5; risks age, >3 CAD risks, known stenosis, angina - Cath yesterday FFR 0.86 and 0.88, with EF 65% - patient to be seen in cards outpatient 3-4 months - Patient given prescription for ACEI, and Atorvastatin 40. Educated to continue taking Atenolol, and ASA81 - cardiology to sign off at this time Pt requested an echo and carotids for 3 month history of louie arm pain, echo was ordered for today. Pt states that she did not want to stay and wait for it, requested to have it done outpatient. Qualifiers: Chest pain type: other chest pain Qualified Code(s): R07.89 - Other chest pain; R07.8 - Other chest pain (2) GERD (gastroesophageal reflux disease) Priority: Secondary Status: Chronic Comments: Pt reports tenderness to epigastric area with palpation. Could be part of chest pain pt is experiencing. Follow up with PCP for further evaluation and medication changes, if needed. Continue home medications. Qualifiers: Esophagitis presence: without esophagitis Qualified Code(s): K21.9 - Gastro -esophageal reflux disease without esophagitis (3) HTN (hypertension) Priority: Secondary Status: Chronic Comments: Chronic. Continue home medications. Qualifiers: Hypertension type: essential hypertension Qualified Code(s): I10 - Essential (primary) hypertension (4) DVT prophylaxis Priority: Secondary Status: Acute Comments: Pt has been ambulatory, is observation status. - Discharge Medications Prescriptions: Atorvastatin [Lipitor] 40 mg PO HS #30 tablet Lisinopril [Zestril] 10 mg PO DAILY #30 tablet Home Medications: Atenolol [Tenormin] 50 mg PO BID 11/26/15 [History] Calcium Carbonate [Calcium] 500 mg PO BID 11/26/15 [History] Levothyroxine [Synthroid] 75 mcg PO 0630 11/26/15 [History] [place]-3/Dha/Epa/Fish Oil [Fish Oil 1,000 mg Softgel] 2,000 mg PO BID 11/26/15 [ History] Omeprazole [PriLOSEC] 20 mg PO DAILY 11/26/15 [History] Aspirin Enteric Coated [Aspirin EC] 81 mg PO DAILY 02/14/17 [History] Potassium Chloride [Klor-Con Sprinkle] 10 meq PO DAILY 02/14/17 [History] Atorvastatin [Lipitor] 20 mg PO HS tablet 02/16/17 [Rx] Atorvastatin [Lipitor] 40 mg PO HS #30 tablet 02/16/17 [Rx] Lisinopril [Zestril] 10 mg PO DAILY #30 tablet 02/16/17 [Rx] Allergies/Adverse Reactions: 3 Allergy/AdvReac Type Severity Reaction Status Date / Time codeine Allergy Drowsy Verified 02/14/17 16:16 ketorolac [From Toradol] Allergy Vomiting Verified 02/14/17 16:16 lansoprazole [From Prevacid] Allergy Nausea Verified 02/14/17 16:16 morphine Allergy Nausea Verified 02/14/17 16:16 propoxyphene [From Darvon] Allergy See Verified 02/14/17 16:16 Comments Procedures/tests Complete & Pending: Procedures Performed prior 72 hours Category Date Time Status CT head/brain wo con [CT] Routine Cat Scan 02/14/17 21:06 Completed Left Heart Cath [CL Cardiac Catheterization] [CL] School Custodian 02/15/17 13:06 Completed Routine ECG 12 lead ECG [ECG] Routine Y 02/14/17 19:28 Completed EV echocardiogram Routine Y 02/16/17 10:04 Stop Req Date of admission: 02/14/17 19:34 Primary care physician: Gurjit Leon, Consults: 02/14/17 21:05 Consult to Fiberglass Quality Technician [CONS] Routine Reason for SW Consult: Patient would like information regarding POA and home needs for post-discharge planning. Discharging clinician: Donna Goldberg Anticipated date of discharge: 02/16/17 - Patient Status Disposition: Home, Self-Care Condition: Good Functional capacity at discharge: independent ambulation Overall status at discharge: patient is back to baseline - Discharge Instructions Follow Up With: Gurjit Leon DO [Primary Care Provider] - 02/21/17 9:30 am Miah Hernandez [Partnered Physician] - 03/06/17 8:00 am Additional Instructions: Take your medications as directed. Return to the emergency department as needed for any other problems or concerns , or if symptoms return or worsen. Resume her normal activities as tolerated. Follow-up primary care provider in 7-10 days. - Diet and Activity Activity: increase activity as tolerated Diet: advance to your usual diet Hospital course: Please see assessment and plan for hospital course. - Time Spent with Patient Total time spent providing and/or coordinating discharge services: Less than 30 minutes - Constitutional Vitals: Temp Pulse Resp BP Pulse Ox 98.3 F 66 15 122/67 95 02/16/17 11:25 02/16/17 11:25 02/16/17 11:25 02/16/17 11:25 02/16/17 11:25 General appearance: Present: cooperative, A&O X 3, pleasant, no acute distress, answers questions appropriately - Head Head exam: Present: atraumatic, normal inspection, normocephalic - Eye Eye exam: Present: normal appearance, conjuntiva pink, sclera anicteric - Neck Neck exam general surgery: Present: supple, trachea midline. Absent: lymphadenopathy - Respiratory Respiratory exam: Present: CTAB. Absent: accessory muscle use, rales, respiratory distress, rhonchi, wheezes - Cardiovascular Cardiovascular exam: Present: RRR, +S1, +S2. Absent: diastolic murmur, gallop, rubs, systolic murmur - GI/Abdominal GI/Abdominal exam: Present: normal bowel sounds, soft. Absent: distended, hepatomegaly, tenderness - Extremities Exam Extremities exam: Present: normal capillary refill, normal inspection, warm, radial pulses palpable and symmetrical. Absent: calf tenderness, cyanotic, pedal edema - Neurological Exam Neurological exam: Present: alert, oriented X3, no focal deficits. Absent: facial droop, speech deficit - Skin Skin exam: Present: dry, intact, normal color, warm. Absent: rash
== END 2017-02-16 17:00 | disposition home or self-care (01) ==
LOC: EMEROO 16:05 → 3BNU 16:05
PROVIDERS: ADMIT Hospitalist; ATTEND Registered Nurse

== ENCOUNTER 2017-03-18 23:23 | Observation (INO) ==
[2017-03-18] MEDS ORDERED: 0.9 % Sodium Chloride 1,000 ML IVC ONE (23:28)
[2017-03-18] MEDS ORDERED: Ondansetron 4 MG/2 ML VIAL IVP ONE (23:36)
[2017-03-18 23:54] LABS: Basophils # 0.1 K/mcL (0.0-0.2); Basophils % 0.5 %; Eosinophils # 0.5 K/mcL (0.0-0.6); Eosinophils % 4.5 %; Hematocrit 34.3 % (35.3-44.9); Hemoglobin 11.3 g/dL (11.5-15.4); Immature Granulocytes % 0.2 % (0-4); Lymphocytes # 4.9 K/mcL (0.6-4.6); Lymphocytes % 48.6 %; Mean Corpuscular HGB Conc 32.9 g/dL (31.6-35.5); Mean Corpuscular Hemoglobin 30.4 pg (28.0-33.3); Mean Corpuscular Volume 92.2 fL (83.0-100.0); Mean Platelet Volume 9.1 fL (9.4-12.4); Monocytes # 0.7 K/mcL (0.0-1.3); Monocytes % 7.3 %; Platelet Count 242 K/mcL (140-400); Red Blood Count 3.72 M/mcL (3.82-4.97); Red Cell Distribution Width 13.8 % (11.5-14.5); Segmented Neutrophils % 38.9 %
--- NOTE | 2017-03-18 23:55 | Emergency Department Note ---
START Narrative - START START: I examined this patient and my medical decision-making was reviewed with the Resident Physician. I agree with the documented findings, disposition and treatment plan as described except to the extent set forth below. Findings consistent with acute vertigo. Suspect peripheral lesion will admit for rule out central lesion. She has a nonspecific ST segment changes. Cannot rule out anginal colon thought this time. Will need serial cardiac biomarkers. Plan to admit after menstruation of aspirin and negative head CT.
--- NOTE | 2017-03-19 00:06 | Emergency Department Note ---
Disposition Clinical Impression: Vertigo Nausea & vomiting Qualifiers: Vomiting type: unspecified Vomiting Intractability: unspecified Qualified Code( s): R11.2 - Nausea with vomiting, unspecified Hematemesis Qualifiers: Nausea presence: with nausea Qualified Code(s): K92.0 - Hematemesis Disposition: Admitted As Inpatient Condition: Fair Forms: ED Satisfaction Letter Time of Disposition: 00:41 Dizziness HPI - General Chief Complaint: ED Nausea/Vomiting/Diarrhea Stated Complaint: N/V & Dizziness Source: patient Limitations: no limitations Nursing Notes Reviewed: Yes Vital Signs Reviewed: Yes - History of Present Illness HPI Narrative: 15-year-old female presents to emergency department chief complaint of sudden onset dizziness, nausea, vomiting. He states that she was walking up steps at her house when it started. Patient states that she has not ever felt like this before. Patient denies any headache. Patient states that it feels like the sensation of the room is spinning. - Related Data Home Medications Medication Instructions Recorded Confirmed Atenolol [Tenormin] 50 mg PO BID 11/26/15 02/14/17 Calcium Carbonate [Calcium] 500 mg PO BID 11/26/15 02/14/17 Levothyroxine [Synthroid] 75 mcg PO 0630 11/26/15 02/14/17 [place]-3/Dha/Epa/Fish Oil [Fish Oil 2,000 mg PO BID 11/26/15 02/14/17 1,000 mg Softgel] Omeprazole [PriLOSEC] 20 mg PO DAILY 11/26/15 02/14/17 Aspirin Enteric Coated [Aspirin EC] 81 mg PO DAILY 02/14/17 02/14/17 Potassium Chloride [Klor-Con 10 meq PO DAILY 02/14/17 02/14/17 Sprinkle] Previous Rx's Medication Instructions Recorded Atorvastatin [Lipitor] 20 mg PO HS tablet 02/16/17 Atorvastatin [Lipitor] 40 mg PO HS #30 tablet 02/16/17 Lisinopril [Zestril] 10 mg PO DAILY #30 tablet 02/16/17 Allergies Allergy/AdvReac Type Severity Reaction Status Date / Time codeine Allergy Drowsy Verified 02/14/17 16:16 ketorolac [From Toradol] Allergy Vomiting Verified 02/14/17 16:16 lansoprazole [From Prevacid] Allergy Nausea Verified 02/14/17 16:16 morphine Allergy Nausea Verified 02/14/17 16:16 propoxyphene [From Darvon] Allergy See Verified 02/14/17 16:16 Comments All systems ED: reviewed and negative except as stated. Review of Systems: As Per HPI Eyes: Denies: vision change Gastrointestinal: Reports: nausea, vomiting. Denies: abdominal pain, diarrhea Genitourinary: Denies: urgency, dysuria, frequency Past Medical History - Past Medical History Medical history: Reports: GERD, hypertension, thyroid disease, other Surgical history: Reports: hysterectomy, other Psychiatric history: Reports: no psych history BIOPHYSICS SCIENTIST history: Reports: no BIOPHYSICS SCIENTIST history - Social History Smoking Status: Never smoker Smokeless Tobacco Status: No Alcohol use: Reports: none Drug use: Reports: none Physical Exam CONSTITUTIONAL: Alert and oriented X3, well-nourished, holding green bag in front of her. HEAD: Normocephalic; atraumatic. EYES: PERRL, no scleral icterus. NOSE: The nose is normal in appearance without rhinorrhea RESP: Normal chest excursion with respiration; breath sounds clear and equal bilaterally; no wheezes, rhonchi, or rales CARD: Regular rhythm, without murmurs, rub or gallop ABD: Non-distended; non-tender, soft,without rigidity, rebound or guarding SKIN: Normal for age and race; warm and dry; no apparent lesions Neuro: GCS 15, cranial nerves II through XII grossly intact, sensation intact throughout, strength 5 out of 5 in upper and lower extremities bilaterally - General Limitations: no limitations General appearance: alert Course Vital Signs Temperature 98.9 F 03/18/17 23:26 Pulse Rate 64 03/18/17 23:26 Respiratory Rate 14 03/18/17 23:26 Blood Pressure 180/92 03/18/17 23:26 O2 Sat by Pulse Oximetry 95 03/18/17 23:26 Temperature 98.9 F 03/18/17 23:26 Pulse Rate 64 03/18/17 23:26 Respiratory Rate 14 03/18/17 23:26 Blood Pressure 180/92 03/18/17 23:26 O2 Sat by Pulse Oximetry 95 03/18/17 23:26 Oxygen Delivery Oxygen Delivery Room Air Dizziness - MDM Narrative Medical decision making narrative: 59-year-old female presents to the emergency department with concern for acute onset nausea vomiting that was sudden and started washing for themselves. Patient does not currently have a headache. The CT scan of the head without contrast to rule out any acute intracranial hemorrhage. Obtain electrocardiogram and this revealed sinus bradycardia that had nonspecific ST changes from her previous echocardiogram. Chest x-ray did not reveal any acute abnormality. On the way to head CT, patient had an episode of vomiting with bright red blood on the towel. Patient never reports any history of this before other than gastroesophageal reflux. CBC reveals hemoglobin of 11.3. This is consistent for where her normal hemoglobin is. Patient denies any alcohol use, and only admits to eating sausage and pancakes tonight. Patient does not have any pain at this time. She also denies any melena or hematochezia. Given the patient IV Protonix. Potassium is also low at 3.0. Given her 44 mEq IV. Patient was given normal saline. Ativan was given to help with her symptoms of vertigo. I discussed admission with the hospitalist for patient's nausea and vomiting. He agreed to accept the patient. I discussed the plan with the family and patient at bedside and they agree. Patient is supposed to receive further workup for carotid imaging tomorrow. Chest X-Ray 03/18/17 23:28 IMPRESSION: No acute cardiopulmonary abnormality. D/ / Aleksander Beach MD / Aleksander Beach MD Interpreting Provider: Aleksander Beach MD Head CT 03/19/17 23:28 IMPRESSION: No acute intracranial abnormality. D/ / Phillip Ballesteros MD / Phillip Ballesteros MD Interpreting Provider: Phillip Ballesteros MD - Lab Data Result diagrams: 03/18/17 23:41 Lab Results 03/18/17 Range/Units 23:41 WBC 10.2 (4.3-11.1) K/mcL RBC 3.72 L (3.82-4.97) M/mcL Hgb 11.3 L (11.5-15.4) g/dL Hct 34.3 L (35.3-44.9) % MCV 92.2 (83.0-100.0) fL MCH 30.4 (28.0-33.3) pg MCHC 32.9 (31.6-35.5) g/dL RDW 13.8 (11.5-14.5) % Plt Count 242 (140-400) K/mcL MPV 9.1 L (9.4-12.4) fL Immature Gran % 0.2 (0-4) % Seg Neutrophils % 38.9 % Lymphocytes % 48.6 % Monocytes % 7.3 % Eosinophils % 4.5 % Basophils % 0.5 % Neutrophils # 4.0 (1.6-8.9) K/mcL Lymphocytes # 4.9 H (0.6-4.6) K/mcL Monocytes # 0.7 (0.0-1.3) K/mcL Eosinophils # 0.5 (0.0-0.6) K/mcL Basophils # 0.1 (0.0-0.2) K/mcL - EKG Data EKG attestation: Yes I reviewed and interpreted this EKG. EKG results narrative: 23:42 Ventricular rate 54 beats per minute, MS interval 177 ms, QRS duration 101 ms, QT 452 ms, QTC 439 ms, normal axis. Sinus bradycardia with a ventricular rate of 54 bpm. There is nonspecific ST depression in lead V3 of 1 mm.
[2017-03-19 00:08] LABS: BUN/Creatinine Ratio 18 (6-26); Blood Urea Nitrogen 13 mg/dL (7-20); Calcium 9.2 mg/dL (8.6-10.8); Carbon Dioxide 25 mEq/L (19-29); Chloride 109 mEq/L (98-109); Glucose 102 mg/dL (70-99); Osmolality,Calculated 292 (280-300); Sodium 141 mEq/L (136-145); eGFR For African Americans > 60 (> 60); eGFR For Non-African Americans > 60 (> 60)
[2017-03-19] MEDS: diazePAM 5 MG TABLET PO ONE ×2 (00:12→02:54)
[2017-03-19] MEDS: Aspirin 81 MG TAB.CHEW PO ONE ×2 (00:12→02:54)
[2017-03-19] MEDS ORDERED: Potassium Phosphate 44 MEQ in 0.9 % Sodium Chloride 250 ML IVPB ONE (00:15)
[2017-03-19 00:22] LABS: Bilirubin,Urine Negative (Negative); Blood,Urine Negative (Negative); Clarity,Urine Clear (Clear); Color,Urine Yellow (Yellow); Glucose,Urine (UA) Normal (Normal); Ketones,Urine Negative (Negative); Leukocyte Esterase,Urine Moderate (Negative); Nitrite,Urine Negative (Negative); PH,Urine 6.5 pH Units (5.0-8.0); Protein,Urine Negative (Neg-Trace); Specific Gravity,Urine 1.017 (1.010-1.025); Urobilinogen,Urine Normal (Normal)
[2017-03-19] MEDS ORDERED: Pantoprazole 40 MG VIAL IVP ONE (00:22)
[2017-03-19 00:27] LABS: Bacteria,Urine None Seen per hpf (None-Few); Hyaline Casts,Urine None Seen per lpf (None-Few); RBC,Urine 0-3 per hpf (0-3); Squamous Epithelial Cell,Urine Many per lpf (None-Few)
[2017-03-19] MEDS ORDERED: *HR* LORazepam 2 MG/ML VIAL IVP ONE (00:38)
[2017-03-19 00:45] LABS: Alanine Aminotransferase 25 Units/L (0-55); Albumin 3.6 g/dL (3.5-5.0); Albumin/Globulin Ratio 1.1 (1.1-2.2); Alkaline Phosphatase 83 Units/L (38-126); Aspartate Amino Transferase 19 Units/L (5-34); Bilirubin,Direct 0.2 mg/dL (0.0-0.5); Bilirubin,Indirect 0.2 mg/dL (0.0-1.2); Bilirubin,Total 0.4 mg/dL (0.2-1.2); Globulin 3.3 g/dL (2.4-3.5); Lipase 24 Units/L (8-78); Total Protein 6.9 g/dL (6.0-8.3)
[2017-03-19] MEDS ORDERED: *HR* Promethazine 25 MG/ML VIAL IVP PRN (03:33)
[2017-03-19] MEDS ORDERED: Acetaminophen 325 MG TABLET PO PRN (03:33)
[2017-03-19] MEDS ORDERED: Naloxone 0.4 MG/ML INJ IVP PRN (03:33)
[2017-03-19] MEDS ORDERED: 0.9 % Sodium Chloride 1,000 ML IVC SCH (03:45)
[2017-03-19] MEDS ORDERED: 0.9 % Sodium Chloride w KCl 40 MEQ/1,000 ML MLS IVC SCH (03:45)
--- NOTE | 2017-03-19 04:33 | Internal Med History&Physical ---
Date of Encounter: 03/19/17 Time of Encounter: 04:28 Assessment and Plan (1) Coronary artery disease Current visit: Yes Status: Acute Trend troponins to rule out ACS given nausea and vomiting as possible chest pain equivalent. Qualifiers: Coronary Disease-Associated Artery/Lesion type: [place] artery [place] vs. transplanted heart: [place] heart Associated angina: without angina Qualified Code(s): I25.10 - Atherosclerotic heart disease of [place] coronary artery without angina pectoris (2) HTN (hypertension) Current visit: No Status: Chronic Qualifiers: Hypertension type: essential hypertension Qualified Code(s): I10 - Essential (primary) hypertension (3) HLD (hyperlipidemia) Current visit: No Status: Chronic Qualifiers: Hyperlipidemia type: pure hypercholesterolemia Qualified Code(s): E78.00 - Pure hypercholesterolemia, unspecified; E78.0 - Pure hypercholesterolemia (4) ST segment depression Current visit: No Status: Acute EKG shows new ST depressions. She has a known history of CAD treated medically. Continue aspirin and Lipitor and beta nieves. Trend troponin. Monitor on telemetry. (5) Vertigo Current visit: Yes Status: Acute IV fluids and meclizine. (6) Nausea & vomiting Current visit: Yes Status: Acute Likely secondary to benign vertigo. We will treat with IV Zofran. Qualifiers: Vomiting type: unspecified Vomiting Intractability: non-intractable Qualified Code(s): R11.2 - Nausea with vomiting, unspecified (7) Hematemesis Current visit: Yes Status: Acute Nothing by mouth. IV Protonix. Trend hemoglobin and hematocrit. Qualifiers: Nausea presence: with nausea Qualified Code(s): K92.0 - Hematemesis Internal Medicine - H&P: HPI Chief complaint: Nausea and vomiting Admitted From: Emergency Dept Plans for Post Hospital Care: Home History of present illness: Ms. Umaña is a 67 year old female with past medical history significant for hypertension, hypothyroidism, GERD and dyslipidemia who presented to the hospital for dizziness associated with nausea and vomiting for 1 day. Symptoms worse with standing up, does cry as rocking sensation. She had one episode with vomiting with moderate amount of blood in it. Patient was referred for admission and further workup and care of nausea vomiting and hematemesis as well as low potassium level. Per Review of medical records she was admitted to the hospital one month ago and had a heart catheter which showed moderate nonobstructive CAD with a 70% RCA lesion and that had CALLI 3 flow. No intervention was performed. Recommendation for medical management. A 10 point review of systems was negative except as above Family history reviewed and found to be noncontributory. Social history: Denies toxic habits. Past Med Surg Social Fam HX - Past Medical History Medical history: GERD, hypertension, thyroid disease, other Psychiatric history: no psych history - Past Surgical History Surgical History: hysterectomy, other - Social History Smoking Status: Never smoker Smokeless Tobacco Status: No Alcohol use: none Drug use: none - Family History Father Family Member Ethnicity: Non- Living Status: Hx Family Cardiac Disorders: Yes (HTN) Hx Family GI Disorders: Yes (CKD) Mother Family Member Ethnicity: Non- Living Status: Still Living Hx Family Cardiac Disorders: Yes (Leaky heart valve) Brother Family Member Ethnicity: Non- Living Status: Still Living Hx Family Cardiac Disorders: Yes (AR, CHF, HTN, HLD) Sister Family Member Ethnicity: Non- Living Status: Still Living Hx Family Cardiac Disorders: Yes (Mitral valve regurgitation) Internal Medicine - H&P: Meds Atenolol [Tenormin] 50 mg PO BID 11/26/15 [History] Calcium Carbonate [Calcium] 500 mg PO BID 11/26/15 [History] Levothyroxine [Synthroid] 75 mcg PO 0630 11/26/15 [History] [place]-3/Dha/Epa/Fish Oil [Fish Oil 1,000 mg Softgel] 2,000 mg PO BID 11/26/15 [ History] Omeprazole [PriLOSEC] 20 mg PO DAILY 11/26/15 [History] Aspirin Enteric Coated [Aspirin EC] 81 mg PO DAILY 02/14/17 [History] Potassium Chloride [Klor-Con Sprinkle] 10 meq PO DAILY 02/14/17 [History] Atorvastatin [Lipitor] 20 mg PO HS tablet 02/16/17 [Rx] Atorvastatin [Lipitor] 40 mg PO HS #30 tablet 02/16/17 [Rx] Lisinopril [Zestril] 10 mg PO DAILY #30 tablet 02/16/17 [Rx] 3 Allergy/AdvReac Type Severity Reaction Status Date / Time codeine Allergy Drowsy Verified 02/14/17 16:16 ketorolac [From Toradol] Allergy Vomiting Verified 02/14/17 16:16 lansoprazole [From Prevacid] Allergy Nausea Verified 02/14/17 16:16 morphine Allergy Nausea Verified 02/14/17 16:16 propoxyphene [From Darvon] Allergy See Verified 02/14/17 16:16 Comments All Systems PM: A 10-system review of systems was performed and is negative for pertinent findings except as documented above in the HPI. - Constitutional Vitals: Temp Pulse Resp BP Pulse Ox 98.1 F 61 15 144/85 95 03/19/17 02:37 03/19/17 02:37 03/19/17 02:37 03/19/17 02:37 03/19/17 02:37 General appearance: Present: A&O X 3 - Eye Eye exam: Present: PERRL, conjuntiva pink, sclera anicteric Pupils: Present: PERRL - Respiratory Respiratory exam: Present: CTAB. Absent: accessory muscle use, rales, rhonchi, wheezes - Cardiovascular Cardiovascular exam: Present: RRR, +S1, +S2. Absent: diastolic murmur, gallop, rubs, systolic murmur - GI/Abdominal GI/Abdominal exam: Present: normal bowel sounds, soft, no peritoneal signs. Absent: distended, tenderness - Extremities Exam Extremities exam: Present: warm, radial pulses palpable and symmetrical. Absent : calf tenderness, cyanotic, pedal edema - Skin Skin exam: Present: dry, intact Internal Med - H&P Results - Labs CBC & Chem 7: 03/18/17 23:41 03/18/17 23:41 - EKG Data -: EKG Interpreted by Myself EKG shows normal: sinus rhythm Rate: normal (ST depression and V2 V3 and V4, no ST elevation or T-wave changes) - Impressions ITS Impressions Head CT 03/19/17 23:28 IMPRESSION: No acute intracranial abnormality. D/ / Phillip Ballesteros MD / Phillip Ballesteros MD Interpreting Provider: Phillip Ballesteros MD
[2017-03-19 04:54] LABS: Eosinophils % 1.6 %; Hematocrit 33.6 % (35.3-44.9); Hemoglobin 11.1 g/dL (11.5-15.4); Immature Granulocytes % 0.3 % (0-4); Mean Corpuscular Hemoglobin 30.5 pg (28.0-33.3); Mean Corpuscular Volume 92.3 fL (83.0-100.0); Mean Platelet Volume 9.1 fL (9.4-12.4); Monocytes % 4.2 %; Platelet Count 222 K/mcL (140-400); Red Blood Count 3.64 M/mcL (3.82-4.97); Red Cell Distribution Width 13.9 % (11.5-14.5); Segmented Neutrophils % 68.4 %
[2017-03-19 04:55] LABS: Basophils % 0.5 %; Eosinophils # 0.1 K/mcL (0.0-0.6); Lymphocytes # 1.9 K/mcL (0.6-4.6); Monocytes # 0.3 K/mcL (0.0-1.3); Neutrophils # 5.1 K/mcL (1.6-8.9)
[2017-03-19 05:08] LABS: BUN/Creatinine Ratio 16 (6-26); Blood Urea Nitrogen 11 mg/dL (7-20); Calcium 8.8 mg/dL (8.6-10.8); Carbon Dioxide 25 mEq/L (19-29); Chloride 111 mEq/L (98-109); Glucose 120 mg/dL (70-99); Osmolality,Calculated 295 (280-300); Sodium 142 mEq/L (136-145); eGFR For African Americans > 60 (> 60); eGFR For Non-African Americans > 60 (> 60)
[2017-03-19] MEDS ORDERED: Pantoprazole 40 MG VIAL IVP SCH (09:00)
[2017-03-19 10:28] LABS: Hematocrit 35.2 % (35.3-44.9); Hemoglobin 11.5 g/dL (11.5-15.4)
[2017-03-19] MEDS: Ondansetron 4 MG/2 ML VIAL IVP PRN (11:03)
--- NOTE | 2017-03-19 11:35 | Electrocardiograph Report ---
[place] [id number] Test Date: 2017-03-18 Pat Name: Cindi Umaña Department: [id number] Room: 2A91 Gender: F Ritual Circumciser: EKP : 1950 Requested By: Eulogio Coronado Order Number: [id number] Reading MD: Michael Hill MD Measurements Intervals [place] Rate: 54 P: -8 LA: 177 QRS: 12 QRSD: 101 T: 29 QT: 452 QTc: 439 Interpretive Statements SINUS BRADYCARDIA Electronically Signed On 03-19-2017 11:33:54 EST by Michael Hill MD
[2017-03-19 17:05] LABS: Hematocrit 33.5 % (35.3-44.9); Hemoglobin 11.2 g/dL (11.5-15.4)
--- NOTE | 2017-03-19 18:42 | Event Note ---
Date of Encounter: 03/19/17 Time of Encounter: 18:41 67/female Brief past medical history: GERD, hypertension, thyroid disease History of present medical illness and course in the ER: Patient was experiencing severe syncopal episode yesterday evening and at that time she called her daughter for help. Squad was called in view of syncopal episode and the patient was brought to the emergency room yesterday. Patient underwent MRI scan of the brain which was not suggestive of any acute event. When patient was in the MRI she was not able to tolerate due to claustrophobia and she had couple of episodes of vomiting. After the second episode of vomiting patient had blood streaks in her vomitus and she was persistently having that for next couple of episodes of vomiting. There is a possibility of likely Olinda-Emmanuel tear. In last 12 hours patient did not have any more hematemesis. Examination: I examined this patient in the emergency room as well as in the unit 3B room 39. Examination of head, eyes, ear, nose, oral cavity and cervical area did not reveal any abnormality. Examination of heart and lung is benign. Abdomen did not reveal any abnormality. Brief neurological examination was negative for any stroke/seizures. Assessment TIA to rule out CVA. Possibility of a Olinda-Emmanuel tear is very high. Plan: TIA/CVA workup as per protocol. Consult GI for possible EGD tomorrow. Patient is nothing by mouth from midnight I have discussed this plan with the patient and patient's daughter at length and they verbalize understanding.:
[2017-03-20] MEDS: Ondansetron 4 MG/2 ML VIAL IVP PRN (03:25)
[2017-03-20] MEDS: Pantoprazole 40 MG VIAL IVP SCH ×2 (06:10→18:15)
--- NOTE | 2017-03-20 11:02 | Gastroenterology Consult Note ---
Date of Encounter: 03/20/17 Time of Encounter: 10:54 - Assessment and plan (1) Hematemesis Current Visit: Yes Status: Acute Assessment and plan: patient had multiple episodes of N/V with streaks of blood concern for elie mary tear has epigastric abdominal pain and history of gastritis hgb stable at 11 plan for EGD today. Qualifiers: Nausea presence: with nausea Qualified Code(s): K92.0 - Hematemesis (2) Vertigo Current Visit: Yes Status: Acute Assessment and plan: reports new onset dizziness room spinning sensation with N/V MRI negative for CVA patient on aspirin, statin and meclizine improvement with meclizine but still nauseas (3) Nausea & vomiting Current Visit: Yes Status: Acute Assessment and plan: 2nd to vertigo improved with meclizine and zofran. Qualifiers: Vomiting type: unspecified Vomiting Intractability: non-intractable Qualified Code(s): R11.2 - Nausea with vomiting, unspecified (4) Coronary artery disease Current Visit: Yes Status: Acute Assessment and plan: recent nuclear stress test in 01/2017 negative for ischemia echo today shows EF of 60-65% initial EKG showed ST-T wave changes in leads V3 and V4 which have resolved in repeat EKG troponin WNL Qualifiers: Coronary Disease-Associated Artery/Lesion type: [place] artery [place] vs. transplanted heart: [place] heart Associated angina: without angina Qualified Code(s): I25.10 - Atherosclerotic heart disease of [place] coronary artery without angina pectoris - Time Spent With Patient Total time spent is greater than 50% in coordination of care (as documented) at patient's floor/unit and/or counseling patient: GI History of Present Illness - Data of Consult Patient: new to practice Consult date: 03/19/17 Requesting Physician: Gracie Clark MD - Consult Narrative Reason for consult: hemetemesis History of present illness: Ms. Umaña is a 67 year old female presented with cc of dizziness. States sunday night she had sudden onset of "room spinning" sensation with nasuea and vomiting. Patient underwent MRI to rule out CVA and at that moment had additional epiosdes of vomiting with streaks of blood. After MRI she had additional episodes of vomiting with blood streaks. She has had dry heaving overnight but no epiosdes of vomiting. She conitnues to have nausea but denies dizziness today. She denies fever, chills, dysphagia, painfull swallowing, reflux, blurry vision, sob,cough chest pain, palpitations, abdominal pain, diarrhea, hematochezia, weight loss, numbness, tingling. Reports generalized weakness. Patient states she had colonoscopy 5 years ago which was normal and EGD in the past which showed gastritis. She denies use of alcohol or smoking. She uses NSAIDS very infrequently <1x per month. Denies family hx of GI cancer. Past Med Surg Social Fam HX - Past Medical History Medical history: GERD, hypertension, thyroid disease, other Psychiatric history: no psych history - Past Surgical History Surgical History: hysterectomy, other - Social History Smoking Status: Never smoker Smokeless Tobacco Status: No Alcohol use: none Drug use: none - Family History Father Family Member Ethnicity: Non- Living Status: Hx Family Cardiac Disorders: Yes (HTN) Hx Family GI Disorders: Yes (CKD) Mother Family Member Ethnicity: Non- Living Status: Still Living Hx Family Cardiac Disorders: Yes (Leaky heart valve) Brother Family Member Ethnicity: Non- Living Status: Still Living Hx Family Cardiac Disorders: Yes ([place], CHF, HTN, HLD) Sister Family Member Ethnicity: Non- Living Status: Still Living Hx Family Cardiac Disorders: Yes (Mitral valve regurgitation) - Constitutional Vitals: Temp Pulse Resp BP Pulse Ox 97.9 F 57 13 129/71 93 03/20/17 07:05 03/20/17 07:05 03/20/17 07:05 03/20/17 07:05 03/20/17 07:05 General appearance: Present: A&O X 3 - Eye Eye exam: Present: EOMI, PERRL - ENT ENT exam: Present: mucous membranes moist - Respiratory Respiratory exam: Present: CTAB - Cardiovascular Cardiovascular exam: Present: RRR, +S1, +S2 - GI/Abdominal GI/Abdominal exam: Present: normal bowel sounds, soft, tenderness (epiagstric/ LUQ), no peritoneal signs - Extremities Exam Extremities exam: Present: warm. Absent: pedal edema - Neurological Exam Neurological exam: Present: alert, oriented X3 - Skin Skin exam: Present: dry, intact, normal color, warm Results - Labs CBC & Chem 7: 03/19/17 16:27 03/19/17 04:31 Labs: Last Result Calcium 8.8 mg/dL (8.6-10.8) 03/19/17 04:31 Troponin I 0.00 ng/mL (0-0.03) 03/19/17 10:22 Entire Visit Hgb 11.2 g/dL (11.5-15.4) L 03/19/17 16:27 Hct 33.5 % (35.3-44.9) L 03/19/17 16:27 Total Bilirubin 0.4 mg/dL (0.2-1.2) 03/18/17 23:41 AST 19 Units/L (5-34) 03/18/17 23:41 ALT 25 Units/L (0-55) 03/18/17 23:41 Lipase 24 Units/L (8-78) 03/18/17 23:41 - Impressions Impressions Echocardiogram 03/20/17 17:45 Impressions: LVEF 60-65%. Normal LV chamber size and function. Mild concentric left ventricular hypertrophy. Moderate left ventricular diastolic dysfunction. Normal right ventricular structure and function. No pulmonary hypertension. No significant valvular dysfunction. Left Ventricular Wall Motion: Rest Echo Findings All wall segments showed normal motion. Findings: Study Quality * Technically adequate exam. ECG Findings * Sinus bradycardia. Left Ventricle * LVEF 60-65%. * Normal LV chamber size and function. * Mild concentric left ventricular hypertrophy. * Moderate left ventricular diastolic dysfunction. Right Ventricle * Normal right ventricular structure and function. Left Atrium * Mild to moderately dilated left atrium. Right Atrium * Mildly dilated right atrium. Aortic Valve * Trileaflet aortic valve with normal function. * No aortic regurgitation. * No aortic stenosis. Mitral Valve * Mildly thickened mitral valve leaflets. * Trace mitral regurgitation. * No mitral stenosis. Tricuspid Valve * Normal tricuspid valve structure. * Mild tricuspid regurgitation. * No pulmonary hypertension. Pulmonic Valve * Normal pulmonic valve structure and function. * No pulmonic regurgitation. Aorta * Normally sized aortic root. Pericardium * The pericardium appears normal. IVC * Normal IVC dimensions and inspiratory collapse. Pulmonary Artery * Normal visualized portions of the main pulmonary artery. Consult Discharge Plan - Plan Referrals: Gurjit Leon DO [Primary Care Provider] -
--- NOTE | 2017-03-20 16:33 | Internal Med Progress Note ---
Date of Encounter: 03/20/17 Time of Encounter: 16:30 - Assessment and plan (1) Vertigo Current Visit: Yes Status: Acute Assessment and plan: That started on day of presentation, with associated fall. Patient reports multiple recurrences while inpatient. Symptoms worse with movement, turning head hours she also reports an episode when laying still. No known history of vertigo. Head CT, brain MRI negative. Bilateral carotid Dopplers negative. No arrhythmia noted on telemetry. With intermittent bradycardia, stop home BB to see if this helps improve symptoms. Continue meclizine, ENT consulted (2) Nausea & vomiting Current Visit: Yes Status: Acute Assessment and plan: Secondary to vertigo. Patient reports acute onset of nausea with intermittent emesis when vertigo episodes occur. Continue when necessary antiemetics. GI consulted Qualifiers: Vomiting type: unspecified Vomiting Intractability: non-intractable Qualified Code(s): R11.2 - Nausea with vomiting, unspecified (3) Coronary artery disease Current Visit: Yes Status: Acute Assessment and plan: per hx. asymptomatic, denied chest pain. Serial troponins negative. Cont home ASA, statin. Home BB stopped as noted above. Qualifiers: Coronary Disease-Associated Artery/Lesion type: [place] artery [place] vs. transplanted heart: [place] heart Associated angina: without angina Qualified Code(s): I25.10 - Atherosclerotic heart disease of [place] coronary artery without angina pectoris (4) HTN (hypertension) Current Visit: No Status: Chronic Assessment and plan: per hx. he [place] controlled. Continue home MAL, hold BB with bradycardia. Qualifiers: Hypertension type: essential hypertension Qualified Code(s): I10 - Essential (primary) hypertension - Subjective Interval history: Seen and examined at bedside. Patient is new to me. Information obtained from chart review and patient report. Patient says she feels better at the moment but she reports multiple episodes of vertigo recurrence. Says she becomes lightheaded, dizzy. Feels like room is spinning around her immediately followed with nausea. No emesis. - Constitutional Vitals: Temp Pulse Resp BP Pulse Ox 98.0 F 56 15 137/67 97 03/20/17 16:22 03/20/17 16:22 03/20/17 16:22 03/20/17 16:22 03/20/17 16:22 General appearance: Present: A&O X 3 - Head Head exam: Present: atraumatic, normocephalic - Eye Eye exam: Present: PERRL, conjuntiva pink, sclera anicteric Pupils: Present: PERRL - Neck Neck exam general surgery: Present: supple, trachea midline. Absent: lymphadenopathy - Respiratory Respiratory exam: Present: CTAB. Absent: accessory muscle use, rales, rhonchi, wheezes - Cardiovascular Cardiovascular exam: Present: RRR, +S1, +S2. Absent: diastolic murmur, gallop, rubs, systolic murmur - GI/Abdominal GI/Abdominal exam: Present: normal bowel sounds, soft, no peritoneal signs. Absent: distended, tenderness - Extremities Exam Extremities exam: Present: warm, radial pulses palpable and symmetrical. Absent : calf tenderness, cyanotic, pedal edema - Neurological Exam Neurological exam: Present: CN II-XII intact, oriented X3, no focal deficits. Absent: pronater drift, facial droop, speech deficit - Skin Skin exam: Present: dry, intact Internal Medicine: Result - Labs CBC & Chem 7: 03/19/17 16:27 03/19/17 04:31 Labs: Short CBC 03/19/17 Range/Units 16:27 Hgb 11.2 L (11.5-15.4) g/dL Hct 33.5 L (35.3-44.9) % - Impressions Impressions Echocardiogram 03/20/17 17:45 Impressions: LVEF 60-65%. Normal LV chamber size and function. Mild concentric left ventricular hypertrophy. Moderate left ventricular diastolic dysfunction. Normal right ventricular structure and function. No pulmonary hypertension. No significant valvular dysfunction. Left Ventricular Wall Motion: Rest Echo Findings All wall segments showed normal motion. Findings: Study Quality * Technically adequate exam. ECG Findings * Sinus bradycardia. Left Ventricle * LVEF 60-65%. * Normal LV chamber size and function. * Mild concentric left ventricular hypertrophy. * Moderate left ventricular diastolic dysfunction. Right Ventricle * Normal right ventricular structure and function. Left Atrium * Mild to moderately dilated left atrium. Right Atrium * Mildly dilated right atrium. Aortic Valve * Trileaflet aortic valve with normal function. * No aortic regurgitation. * No aortic stenosis. Mitral Valve * Mildly thickened mitral valve leaflets. * Trace mitral regurgitation. * No mitral stenosis. Tricuspid Valve * Normal tricuspid valve structure. * Mild tricuspid regurgitation. * No pulmonary hypertension. Pulmonic Valve * Normal pulmonic valve structure and function. * No pulmonic regurgitation. Aorta * Normally sized aortic root. Pericardium * The pericardium appears normal. IVC * Normal IVC dimensions and inspiratory collapse. Pulmonary Artery * Normal visualized portions of the main pulmonary artery. Consult Discharge Plan - Plan Referrals: Gurjit Leon DO [Primary Care Provider] -
--- NOTE | 2017-03-20 17:12 | ENT - Consult Note ---
Date of Encounter: 03/20/17 Time of Encounter: 17:09 Assessment and Plan (1) Left arm numbness Current Visit: Yes Status: Acute Would be concern for possible cardiac event. Patient with recent heart cath. Recommend cardiac workup. (2) Numbness and tingling of left side of face Current Visit: No Status: Acute Currently resolved. Patient with symmetric movement of the face bilaterally. (3) Vertigo Current Visit: Yes Status: Acute Patient with multiple episodes of spinning with associated nausea and emesis. Periods last for several minutes and were without any change in hearing or tinnitus. Episodes of vertigo with nausea and vomiting would be suspicious for benign paroxysmal positional vertigo although patient currently tested negative for this at the bedside with [place]-Hallpike testing bilaterally. It is possible the patient does have this problem and test negative here after having meclizine or she could have self resolved this problem prior to examination since this is a self-limiting process. Patient does have multiple symptoms that are worrisome for other central causes of her vertigo. Patient with highly elevated blood pressure which would make me worried for a stroke or TIA. Patient has had an MRI that is comeback negative. Patient also with some abnormal feeling some left face and arm. Will recheck patient in the a.m. and repeat Bl[place]-Hallpike testing. Otherwise would recommend continue meclizine only when necessary and have patient follow up as outpatient for vestibular testing. History of Present Illness Consult date: 03/20/17 Reason for ENT Consult: vertigo History of present illness: Patient is a 67-year-old female that presented to the emergency department after spinning episode 2 nights ago. Patient was admitted for workup after this. Patient states that she was dizzy for many minutes and had associated nausea and vomiting. Patient has had 2 episodes since this with nausea and vomiting at those times as well. Patient denies any change in hearing or tinnitus. Patient denies any recent viral illness or head cold. Patient with recent cardiac catheterization and has also had elevated blood pressure at home and since she has been in the hospital. Past Med Surg Social Fam HX - Past Medical History Medical history: GERD, hypertension, thyroid disease, other Psychiatric history: no psych history - Past Surgical History Surgical History: hysterectomy, other - Social History Smoking Status: Never smoker Smokeless Tobacco Status: No Alcohol use: none Drug use: none - Family History Father Family Member Ethnicity: Non- Living Status: Hx Family Cardiac Disorders: Yes (HTN) Hx Family GI Disorders: Yes (CKD) Mother Family Member Ethnicity: Non- Living Status: Still Living Hx Family Cardiac Disorders: Yes (Leaky heart valve) Brother Family Member Ethnicity: Non- Living Status: Still Living Hx Family Cardiac Disorders: Yes ([place], CHF, HTN, HLD) Sister Family Member Ethnicity: Non- Living Status: Still Living Hx Family Cardiac Disorders: Yes (Mitral valve regurgitation) Medications and Allergies Atenolol [Tenormin] 50 mg PO BID 11/26/15 [History] Calcium Carbonate [Calcium] 500 mg PO BID 11/26/15 [History] Levothyroxine [Synthroid] 75 mcg PO 0630 11/26/15 [History] [place]-3/Dha/Epa/Fish Oil [Fish Oil 1,000 mg Softgel] 2,000 mg PO BID 11/26/15 [ History] Omeprazole [PriLOSEC] 20 mg PO DAILY 11/26/15 [History] Aspirin Enteric Coated [Aspirin EC] 81 mg PO DAILY 02/14/17 [History] Potassium Chloride [Klor-Con Sprinkle] 10 meq PO DAILY 02/14/17 [History] Atorvastatin [Lipitor] 40 mg PO HS #30 tablet 02/16/17 [Rx] Lisinopril [Zestril] 10 mg PO DAILY #30 tablet 02/16/17 [Rx] 3 Allergy/AdvReac Type Severity Reaction Status Date / Time codeine Allergy Drowsy Verified 02/14/17 16:16 ketorolac [From Toradol] Allergy Vomiting Verified 02/14/17 16:16 lansoprazole [From Prevacid] Allergy Nausea Verified 02/14/17 16:16 morphine Allergy Nausea Verified 02/14/17 16:16 propoxyphene [From Darvon] Allergy See Verified 02/14/17 16:16 Comments ENT Exam Initial Vital Signs Temp Pulse Resp BP Pulse Ox 98.9 F 64 14 180/92 95 03/18/17 23:26 03/18/17 23:26 03/18/17 23:26 03/18/17 23:26 03/18/17 23:26 - General physical appearance well developed, well nourished, no distress - Eyes pinpoint pupil, other (NO NYSTAGMUS), PERRL, normal ocular movement - ENT normal pinna, normal nares, normal mucosa, Other (Ears: External auditory canals clear, tympanic membranes without perforation, middle ear well aerated without effusion; mouth teeth are in good repair, tongue mobile midline some pallor raises symmetrically tonsils are surgically absent) - Neck no masses, trachea midline - Respiratory normal expansion, normal respiratory effort - Neurologic CN 2-12 grossly intact ([place]-Hallpike negative bilaterally, strength symmetric bilaterally upper extremities and lower extremities) - Psychiatric oriented to time, oriented to person, oriented to place, speech is normal Exam Initial Vital Signs Temp Pulse Resp BP Pulse Ox 98.9 F 64 14 180/92 95 03/18/17 23:26 03/18/17 23:26 03/18/17 23:26 03/18/17 23:26 03/18/17 23:26 Results - Labs 03/19/17 16:27 03/19/17 04:31 Abnormal lab results RBC 3.64 M/mcL (3.82-4.97) L 03/19/17 04:31 Hgb 11.2 g/dL (11.5-15.4) L 03/19/17 16:27 Hct 33.5 % (35.3-44.9) L 03/19/17 16:27 MPV 9.1 fL (9.4-12.4) L 03/19/17 04:31 Chloride 111 mEq/L (98-109) H 03/19/17 04:31 Glucose 120 mg/dL (70-99) H 03/19/17 04:31 POC Glucose 103 (58-89) H 03/20/17 03:20 Ur Leukocyte Esterase Moderate (Negative) H 03/18/17 Unknown Urine Microscopic WBC 5-15 per hpf (0-3) H 03/18/17 Unknown Ur Squamous Epith Cells Many per lpf (None-Few) H 03/18/17 Unknown Ur Culture Indicated? YES (NO) A 03/18/17 Unknown All other labs normal. Consult Discharge Plan - Plan Referrals: Gurjit Leon DO [Primary Care Provider] -
[2017-03-21] MEDS: Pantoprazole 40 MG VIAL IVP SCH (05:58)
[2017-03-21] MEDS ORDERED: Aspirin Enteric Coated 81 MG Tablet PO SCH (09:00)
--- NOTE | 2017-03-21 10:44 | ENT - Progress Note ---
Date of Encounter: 03/21/17 Time of Encounter: 10:40 (L) - Assessment and Plan (1) Vertigo Current Visit: Yes Status: Acute Denies any symptoms of vertigo; such as dizziness, room spinning, nausea or vomiting at this time. Also denies having any of these symptoms last night. Patient did not take any meclizine last night. Esthela Hallpike test completed at bedside again this a.m., and was negative. Recommend follow up outpatient for vestibular testing and audiogram, which has been scheduled with the patient. Recommend to continue further workup for other underlying causes of dizziness and previously reported symptoms. ENT is signing off at this time. Subjective Patient reports: no new complaints, feels better, tolerating liquids well, tolerating a regular diet, voiding w/o difficulty Objective Initial Vital Signs Temp Pulse Resp BP Pulse Ox 98.9 F 64 14 180/92 95 03/18/17 23:26 03/18/17 23:26 03/18/17 23:26 03/18/17 23:26 03/18/17 23:26 - General physical appearance no distress, no pain, no moderate distress, no severe distress, no moderate pain , no severe pain - Eyes PERRL, normal ocular movement - ENT normal pinna, normal nares, normal mucosa, CN 2-12 grossly intact - Neck no masses, trachea midline, no lymphadectomy - Respiratory normal respiratory effort - Neurologic CN 2-12 grossly intact, normal coordination, normal sensation, other ([place]- Hallpike test negative. ) - Psychiatric oriented to time, oriented to person, oriented to place, speech is normal, memory intact - Labs 03/19/17 16:27 03/19/17 04:31 Consult Discharge Plan - Plan Referrals: Gurjit Leon DO [Primary Care Provider] -
[2017-03-21 11:19] VITALS: BP 129/72
--- NOTE | 2017-03-21 13:40 | Discharge Summary ---
Date of Encounter: 03/21/17 Time of Encounter: 13:32 - Discharge Diagnosis (1) Vertigo Priority: Primary Status: Resolved Comments: That started on day of presentation, with associated fall. Patient reported multiple recurrences while inpatient. Symptoms worse with movement, turning head. No known history of vertigo. Head CT, brain MRI negative. Bilateral carotid Dopplers negative. No arrhythmia noted on telemetry. Evaluated by ENT who noted [place] test 2 negative and did not suspect BPPV, however patient can follow up outpatient for vestibular testing and audiogram. Symptoms could possibly be secondary to bradycardia. Patient intermittently with heart rates in the 50s on telemetry. Home BB stopped and patient had no symptom recurrence. Resume home BB at lower dose. Holter monitor discharge. (2) Nausea & vomiting Priority: Primary Status: Resolved Comments: Secondary to vertigo. Patient reports acute onset of nausea with intermittent emesis when vertigo episodes occur. Resolved at time of discharge. Qualifiers: Vomiting type: unspecified Vomiting Intractability: non-intractable Qualified Code(s): R11.2 - Nausea with vomiting, unspecified (3) Coronary artery disease Priority: Secondary Status: Chronic Comments: per hx. Asymptomatic, denied chest pain. [facility] 01/2016 with non-obstructive CAD. Medical management recommended at that time. Serial troponins negative. Cont home ASA, statin. Home BB decreased as noted above. Qualifiers: Coronary Disease-Associated Artery/Lesion type: [place] artery [place] vs. transplanted heart: [place] heart Associated angina: without angina Qualified Code(s): I25.10 - Atherosclerotic heart disease of [place] coronary artery without angina pectoris (4) HTN (hypertension) Priority: Primary Status: Chronic Comments: per hx. BP controlled. Continue home MAL, BB at lower dose. Recommend follow- up with PCP within one week for BP recheck. Qualifiers: Hypertension type: essential hypertension Qualified Code(s): I10 - Essential (primary) hypertension - Discharge Medications Prescriptions: Atenolol [Tenormin] 12.5 mg PO DAILY #30 tablet Meclizine [Antivert] 25 mg PO TID PRN #30 tablet PRN Reason: Dizziness Home Medications: Calcium Carbonate [Calcium] 500 mg PO BID 11/26/15 [History] Levothyroxine [Synthroid] 75 mcg PO 0630 11/26/15 [History] [place]-3/Dha/Epa/Fish Oil [Fish Oil 1,000 mg Softgel] 2,000 mg PO BID 11/26/15 [ History] Omeprazole [PriLOSEC] 20 mg PO DAILY 11/26/15 [History] Aspirin Enteric Coated [Aspirin EC] 81 mg PO DAILY 02/14/17 [History] Potassium Chloride [Klor-Con Sprinkle] 10 meq PO DAILY 02/14/17 [History] Atorvastatin [Lipitor] 40 mg PO HS #30 tablet 02/16/17 [Rx] Lisinopril [Zestril] 10 mg PO DAILY #30 tablet 02/16/17 [Rx] Atenolol [Tenormin] 12.5 mg PO DAILY #30 tablet 03/21/17 [Rx] Meclizine [Antivert] 25 mg PO TID PRN #30 tablet 03/21/17 [Rx] Allergies/Adverse Reactions: 3 Allergy/AdvReac Type Severity Reaction Status Date / Time codeine Allergy Drowsy Verified 02/14/17 16:16 ketorolac [From Toradol] Allergy Vomiting Verified 02/14/17 16:16 lansoprazole [From Prevacid] Allergy Nausea Verified 02/14/17 16:16 morphine Allergy Nausea Verified 02/14/17 16:16 prednisone Allergy Difficulty Verified 03/20/17 20:37 Breathing propoxyphene [From Darvon] Allergy See Verified 02/14/17 16:16 Comments Procedures/tests Complete & Pending: Procedures Performed prior 72 hours Category Date Time Status MR head/brain wo con [MR] Stat MRI 03/19/17 06:35 Draft EV carotid duplex imaging BI Routine Y 03/20/17 17:45 Completed EV echocardiogram Routine Y 03/20/17 17:45 Completed Date of admission: 03/19/17 01:08 Primary care physician: Gurjit Leon, Consults: 03/19/17 16:02 Consult to Gastroenterology [CONS] Routine Consulting Provider: G[facility] Reason for Consult: hematoemesis Call Completed: Yes 03/20/17 17:08 Consult to ENT [CONS] Routine Consulting Provider: [facility] [place] Reason for Consult: ? Vertigo Call Completed: Yes Discharging clinician: Mary Finn Anticipated date of discharge: 03/21/17 - Patient Status Disposition: Home, Self-Care Condition: Good Functional capacity at discharge: independent ambulation Overall status at discharge: patient is back to baseline - Discharge Instructions Instructions: Vertigo (DC), Bradycardia (DC), Holter Monitoring (DC), Meclizine (By mouth) Follow Up With: Gurjit Leon DO [Primary Care Provider] - - Diet and Activity Activity: increase activity as tolerated Diet: advance to your usual diet Interval History: Seen and examined at bedside. Says she feels better and would like to go home today. No further vertigo symptoms overnight. No chest pain, no shortness of breath. Hospital course: See assessment and plan for hospital course - Time Spent with Patient Total time spent providing and/or coordinating discharge services: - Constitutional Vitals: Temp Pulse Resp BP Pulse Ox 98.1 F 56 15 129/72 94 03/21/17 11:18 03/21/17 11:18 03/21/17 11:18 03/21/17 11:18 03/21/17 11:18 General appearance: Present: A&O X 3 - Head Head exam: Present: atraumatic, normocephalic - Eye Eye exam: Present: PERRL, conjuntiva pink, sclera anicteric Pupils: Present: PERRL - Neck Neck exam general surgery: Present: supple, trachea midline. Absent: lymphadenopathy - Respiratory Respiratory exam: Present: CTAB. Absent: accessory muscle use, rales, rhonchi, wheezes - Cardiovascular Cardiovascular exam: Present: RRR, +S1, +S2. Absent: diastolic murmur, gallop, rubs, systolic murmur - GI/Abdominal GI/Abdominal exam: Present: normal bowel sounds, soft, no peritoneal signs. Absent: distended, tenderness - Extremities Exam Extremities exam: Present: warm, radial pulses palpable and symmetrical. Absent : calf tenderness, cyanotic, pedal edema - Neurological Exam Neurological exam: Present: CN II-XII intact, oriented X3, no focal deficits. Absent: pronater drift, facial droop, speech deficit - Skin Skin exam: Present: dry, intact
== END 2017-03-21 17:21 | disposition home or self-care (01) ==
LOC: EMEROO 23:23 → 3NENU 23:23 → 2ANU 03-19 01:30 → 3BNU 03-19 14:27
PROVIDERS: ADMIT Internal Medicine; ATTEND Student in an Organized Health Care Education/Training Program

== ENCOUNTER 2019-07-29 16:28 | Observation (INO) ==
[2019-07-29] MEDS ORDERED: Aspirin 81 MG TAB.CHEW PO ONE (16:48)
[2019-07-29 17:12] LABS: Basophils % 0.6 %; Eosinophils # 0.2 K/mcL (0.0-0.6); Eosinophils % 2.7 %; Hematocrit 35.3 % (35.3-44.9); Hemoglobin 11.7 g/dL (11.5-15.4); Immature Granulocytes % 0.3 % (0-4); Lymphocytes % 29.1 %; Mean Corpuscular HGB Conc 33.1 g/dL (31.6-35.5); Mean Corpuscular Hemoglobin 30.5 pg (28.0-33.3); Mean Corpuscular Volume 91.9 fL (83.0-100.0); Mean Platelet Volume 9.2 fL (9.4-12.4); Monocytes # 0.4 K/mcL (0.0-1.3); Monocytes % 6.4 %; Neutrophils # 4.1 K/mcL (1.6-8.9); Platelet Count 286 K/mcL (140-400); Red Blood Count 3.84 M/mcL (3.82-4.97); Red Cell Distribution Width 13.9 % (11.5-14.5); Segmented Neutrophils % 60.9 %; White Blood Count 6.7 K/mcL (4.3-11.1)
[2019-07-29 17:32] LABS: Albumin 4.3 g/dL (3.5-5.7); Albumin/Globulin Ratio 1.7 (1.1-2.2); Bilirubin,Direct 0.2 mg/dL (0.0-0.2); Bilirubin,Indirect 0.7 mg/dL (0.0-1.0); Bilirubin,Total 0.9 mg/dL (0.3-1.0); Globulin 2.5 g/dL (2.4-3.5); Total Protein 6.8 g/dL (6.4-8.9)
[2019-07-29 17:36] LABS: BUN/Creatinine Ratio 17 (6-26); Blood Urea Nitrogen 15 mg/dL (8-23); Calcium 9.5 mg/dL (8.6-10.3); Carbon Dioxide 24 mEq/L (23-29); Chloride 108 mEq/L (98-107); Glucose 138 mg/dL (70-105); Osmolality,Calculated 291 (280-300); Potassium 3.8 mEq/L (3.5-5.1); Sodium 139 mEq/L (136-145); Troponin I < 0.03 ng/mL (< 0.04); eGFR For African Americans > 60 (> 60); eGFR For Non-African Americans > 60 (> 60)
[2019-07-29 17:38] LABS: Prothrombin Time 11.1 Seconds (9.4-12.1)
[2019-07-29 17:41] LABS: Activated Partial Thrombo Time 28.8 Seconds (26.0-36.0)
[2019-07-29] MEDS ORDERED: Isosorbide MONOnitrate (24 HR) 60 MG TAB.ER.24H PO ONE (18:53)
[2019-07-29] MEDS ORDERED: Isosorbide MONOnitrate (24 HR) 30 MG TAB.ER.24H PO ONE (19:15)
[2019-07-29] MEDS ORDERED: Ondansetron 4 MG/2 ML VIAL IVP PRN (21:21)
[2019-07-29] MEDS ORDERED: Naloxone 0.4 MG/ML INJ IVP PRN (21:21)
[2019-07-29] MEDS ORDERED: Acetaminophen 325 MG TABLET PO PRN (21:21)
[2019-07-29] MEDS ORDERED: Nitroglycerin 0.4 MG TAB.SUBL SL PRN (21:22)
[2019-07-29] MEDS ORDERED: GI Cocktail 40 ML EACH PO ONE (21:22)
[2019-07-30 04:26] LABS: Basophils % 0.5 %; Eosinophils # 0.2 K/mcL (0.0-0.6); Eosinophils % 2.3 %; Hematocrit 34.3 % (35.3-44.9); Hemoglobin 11.3 g/dL (11.5-15.4); Immature Granulocytes % 0.4 % (0-4); Lymphocytes # 2.4 K/mcL (0.6-4.6); Mean Corpuscular HGB Conc 32.9 g/dL (31.6-35.5); Mean Platelet Volume 9.2 fL (9.4-12.4); Monocytes # 0.7 K/mcL (0.0-1.3); Monocytes % 9.2 %; Neutrophils # 4.4 K/mcL (1.6-8.9); Platelet Count 261 K/mcL (140-400); Red Blood Count 3.77 M/mcL (3.82-4.97); Red Cell Distribution Width 13.8 % (11.5-14.5); Segmented Neutrophils % 56.6 %; White Blood Count 7.8 K/mcL (4.3-11.1)
[2019-07-30 04:28] LABS: Prothrombin Time 11.1 Seconds (9.4-12.1)
[2019-07-30 04:47] LABS: Troponin I < 0.03 ng/mL (< 0.04)
[2019-07-30 04:50] LABS: BUN/Creatinine Ratio 18 (6-26); Blood Urea Nitrogen 14 mg/dL (8-23); Calcium 9.3 mg/dL (8.6-10.3); Carbon Dioxide 26 mEq/L (23-29); Chloride 108 mEq/L (98-107); Chol/HDL Ratio 3.5 (0-4.9); Cholesterol 155 mg/dL (< 200); Glucose 78 mg/dL (70-105); HDL Cholesterol 44 mg/dL (40-59); LDL Cholesterol,Calculated 77 mg/dL (0-99); Osmolality,Calculated 291 (280-300); Sodium 141 mEq/L (136-145); Triglycerides 169 mg/dL (< 150); eGFR For African Americans > 60 (> 60); eGFR For Non-African Americans > 60 (> 60)
[2019-07-30] MEDS ORDERED: *HR* Heparin 5,000 UNIT/ML VIAL SQ SCH (06:00)
[2019-07-30] MEDS ORDERED: atenoloL 25 MG TABLET PO SCH ×2 (09:00→10:41)
[2019-07-30] MEDS ORDERED: Aspirin Enteric Coated 81 MG Tablet PO SCH (09:00)
[2019-07-30] MEDS ORDERED: Fluticasone Propionate Nasal 50 MCG/SPRAY BOTTLE NS PRN (09:24)
[2019-07-30] MEDS ORDERED: Isosorbide MONOnitrate (24 HR) 30 MG TAB.ER.24H PO SCH (10:30)
[2019-07-30 10:57] VITALS: BP 150/70
[2019-07-30] MEDS ORDERED: lisinopriL 10 MG TABLET PO SCH (11:15)
[2019-07-31] MEDS ORDERED: atenoloL 25 MG TABLET PO SCH (09:00)
== END 2019-07-30 15:34 | disposition home or self-care (01) ==
LOC: 3BNU 16:28 → EMEROOARM 16:28 → SUATTDRO 19:44 → 3BNU 20:30
PROVIDERS: ADMIT Internal Medicine; ATTEND Internal Medicine

== ENCOUNTER 2019-08-25 16:37 | Inpatient (IN) ==
[2019-08-25 18:04] LABS: Bilirubin,Urine Negative (Negative); Blood,Urine Negative (Negative); Clarity,Urine Clear (Clear); Color,Urine Yellow (Yellow); Glucose,Urine (UA) Normal (Normal); Ketones,Urine Negative (Negative); Leukocyte Esterase,Urine Small (Negative); Nitrite,Urine Negative (Negative); PH,Urine 7.5 pH Units (5.0-8.0); Protein,Urine Trace mg/dL (Neg-Trace); Specific Gravity,Urine 1.013 (1.010-1.025); Urobilinogen,Urine Normal (Normal)
[2019-08-25 18:07] LABS: Bacteria,Urine None Seen per hpf (None-Few); Hyaline Casts,Urine None Seen per lpf (None-Few); Squamous Epithelial Cell,Urine Many per lpf (None-Few)
[2019-08-25 19:33] LABS: BUN/Creatinine Ratio 12 (6-26); Blood Urea Nitrogen 12 mg/dL (8-23); Calcium 9.6 mg/dL (8.6-10.3); Carbon Dioxide 24 mEq/L (23-29); Chloride 107 mEq/L (98-107); Glucose 125 mg/dL (70-105); Osmolality,Calculated 293 (280-300); Potassium 3.6 mEq/L (3.5-5.1); Sodium 141 mEq/L (136-145); Troponin I < 0.03 ng/mL (< 0.04); eGFR For African Americans > 60 (> 60); eGFR For Non-African Americans 56 (> 60)
[2019-08-25 19:48] LABS: Basophils % 0.6 %; Eosinophils # 0.1 K/mcL (0.0-0.6); Eosinophils % 2.2 %; Hematocrit 37.6 % (35.3-44.9); Hemoglobin 12.2 g/dL (11.5-15.4); Immature Granulocytes % 0.2 % (0-4); Lymphocytes # 2.4 K/mcL (0.6-4.6); Lymphocytes % 37.5 %; Mean Corpuscular HGB Conc 32.4 g/dL (31.6-35.5); Mean Corpuscular Hemoglobin 30.2 pg (28.0-33.3); Mean Corpuscular Volume 93.1 fL (83.0-100.0); Mean Platelet Volume 9.5 fL (9.4-12.4); Monocytes # 0.4 K/mcL (0.0-1.3); Monocytes % 6.5 %; Neutrophils # 3.3 K/mcL (1.6-8.9); Platelet Count 299 K/mcL (140-400); Red Blood Count 4.04 M/mcL (3.82-4.97); Red Cell Distribution Width 14.1 % (11.5-14.5); White Blood Count 6.3 K/mcL (4.3-11.1)
[2019-08-25] MEDS ORDERED: Naloxone 0.4 MG/ML INJ IVP PRN (22:09)
[2019-08-25] MEDS ORDERED: Mag Hydrox/Al Hydrox/Simeth 30 ML UDC PO PRN (22:09)
[2019-08-25] MEDS ORDERED: *HR* Promethazine 25 MG/ML VIAL IVP PRN (22:09)
[2019-08-25] MEDS ORDERED: Nitroglycerin 0.4 MG TAB.SUBL SL PRN (22:15)
[2019-08-25] MEDS ORDERED: 0.9 % Sodium Chloride 1,000 ML IVC SCH (22:15)
[2019-08-25] MEDS ORDERED: Isovue-370 500 ML BOTTLE IVP ONE (22:18)
[2019-08-26 06:26] LABS: Hematocrit 33.4 % (35.3-44.9); Hemoglobin 10.9 g/dL (11.5-15.4); Mean Corpuscular HGB Conc 32.6 g/dL (31.6-35.5); Mean Corpuscular Hemoglobin 29.9 pg (28.0-33.3); Mean Corpuscular Volume 91.5 fL (83.0-100.0); Mean Platelet Volume 9.1 fL (9.4-12.4); Platelet Count 223 K/mcL (140-400); Red Blood Count 3.65 M/mcL (3.82-4.97); White Blood Count 6.2 K/mcL (4.3-11.1)
[2019-08-26 06:51] LABS: Alanine Aminotransferase 22 Units/L (7-52); Albumin 3.8 g/dL (3.5-5.7); Albumin/Globulin Ratio 1.7 (1.1-2.2); Alkaline Phosphatase 74 Units/L (34-104); Aspartate Amino Transferase 18 Units/L (13-39); BUN/Creatinine Ratio 17 (6-26); Bilirubin,Total 0.4 mg/dL (0.3-1.0); Blood Urea Nitrogen 13 mg/dL (8-23); Calcium 8.7 mg/dL (8.6-10.3); Carbon Dioxide 23 mEq/L (23-29); Chloride 109 mEq/L (98-107); Chol/HDL Ratio 3.4 (0-4.9); Cholesterol 138 mg/dL (< 200); Globulin 2.2 g/dL (2.4-3.5); Glucose 110 mg/dL (70-105); HDL Cholesterol 41 mg/dL (40-59); LDL Cholesterol,Calculated 73 mg/dL (0-99); Magnesium 1.9 mg/dL (1.6-2.6); Osmolality,Calculated 293 (280-300); Potassium 3.7 mEq/L (3.5-5.1); Sodium 141 mEq/L (136-145); Triglycerides 122 mg/dL (< 150); eGFR For African Americans > 60 (> 60); eGFR For Non-African Americans > 60 (> 60)
[2019-08-26] MEDS ORDERED: Fluticasone Propionate Nasal 50 MCG/SPRAY BOTTLE NS PRN (08:18)
[2019-08-26] MEDS: Aspirin Enteric Coated 81 MG Tablet PO SCH (08:36)
[2019-08-26] MEDS: atenoloL 50 MG TABLET PO SCH (08:38)
[2019-08-26] MEDS: Isosorbide MONOnitrate (24 HR) 30 MG TAB.ER.24H PO SCH (11:53)
[2019-08-26] MEDS ORDERED: 0.9 % Sodium Chloride 2,000 ML ONE (12:36)
[2019-08-26] MEDS ORDERED: Heparin 1,000 UNITS/500 mL 500 ML ONE (12:36)
[2019-08-26] MEDS ORDERED: Nitroglycerin 1,000 MCG/10 ML VIAL IV ONE (12:36)
[2019-08-26] MEDS ORDERED: ISOVUE-370 200 ML INFUS..BTL ONE ×2 (12:36→14:21)
[2019-08-26] MEDS ORDERED: *HR* Heparin 10,000 UNIT/10 ML VIAL ONE (12:36)
[2019-08-26] MEDS ORDERED: *HR* Bivalirudin 250 MG VIAL IVC ONE (12:56)
[2019-08-26] MEDS ORDERED: Adenosine 90 MG/30 ML MLS IV ONE (13:01)
[2019-08-26] MEDS ORDERED: *HR* Midazolam HCl 2 MG/2 ML VIAL ONE (13:48)
[2019-08-26] MEDS ORDERED: *HR* FentaNYL (PF) 100 MCG/2 ML VIAL ONE (13:48)
[2019-08-26] MEDS ORDERED: *HR* Ticagrelor 90 MG TABLET ONE (14:38)
[2019-08-26] MEDS ORDERED: 0.9 % Sodium Chloride 1,000 ML IVC SCH (15:15)
[2019-08-26] MEDS: lisinopriL 10 MG TABLET PO SCH (15:27)
[2019-08-27 07:51] LABS: Hematocrit 34.9 % (35.3-44.9); Hemoglobin 11.3 g/dL (11.5-15.4); Mean Corpuscular HGB Conc 32.4 g/dL (31.6-35.5); Mean Corpuscular Hemoglobin 30.1 pg (28.0-33.3); Mean Corpuscular Volume 93.1 fL (83.0-100.0); Mean Platelet Volume 9.3 fL (9.4-12.4); Platelet Count 239 K/mcL (140-400); Red Blood Count 3.75 M/mcL (3.82-4.97); Red Cell Distribution Width 14.4 % (11.5-14.5)
[2019-08-27] MEDS: Isosorbide MONOnitrate (24 HR) 30 MG TAB.ER.24H PO SCH ×2 (07:58→11:21)
[2019-08-27] MEDS: Aspirin Enteric Coated 81 MG Tablet PO SCH (07:58)
[2019-08-27] MEDS: atenoloL 50 MG TABLET PO SCH (07:58)
[2019-08-27 08:22] LABS: BUN/Creatinine Ratio 21 (6-26); Blood Urea Nitrogen 16 mg/dL (8-23); Calcium 9.1 mg/dL (8.6-10.3); Carbon Dioxide 22 mEq/L (23-29); Chloride 110 mEq/L (98-107); Glucose 80 mg/dL (70-105); Osmolality,Calculated 292 (280-300); Potassium 3.5 mEq/L (3.5-5.1); Sodium 141 mEq/L (136-145); eGFR For African Americans > 60 (> 60); eGFR For Non-African Americans > 60 (> 60)
[2019-08-27 10:24] VITALS: BP 127/75
[2019-08-27] MEDS: lisinopriL 10 MG TABLET PO SCH (12:51)
== END 2019-08-27 13:02 | disposition home or self-care (01) | DRG 247 ==
LOC: 3BNU 16:37 → EMEROOARM 16:37 → 3BNU 21:02 → 3NENU 08-26 15:04
PROVIDERS: ADMIT Family Medicine; ATTEND Family Medicine